=== PATIENT | male | born 1945 | race Caucasian/White ===

== ENCOUNTER 2022-12-18 13:20 | Outpatient (CLI) | payer MEDICARE, OTHER, SELFPAY ==
[2022-12-18 13:56] LABS: Hematocrit 59.9 % (42.0-52.0); Hemoglobin 18.1 g/dL (14.0-18.0); Mean Corpuscular HGB Conc 30.2 g/dl (32-36); Mean Corpuscular Hemoglobin 23.2 pg (26-34); Mean Corpuscular Volume 76.7 fl (80-100); Platelet Count Result 432 k/mm3 (150-375); Red Blood Count 7.81 M/mm3 (4.6-6.20); Red Cell Distribution Width 21.9 % (11.5-14.5); White Blood Count 12.7 K/mm3 (4.5-10.0)
== END 2022-12-18 13:21 | disposition home or self-care (01) ==
PROVIDERS: PCP Family Medicine; Visit Provider Family Medicine
DX: E66.3 Overweight (principal)
CPT/HCPCS: 36415; 85027

== ENCOUNTER 2023-02-27 10:46 | Outpatient (CLI) | payer MEDICARE, OTHER, SELFPAY ==
[2023-02-27 11:02] LABS: Basophils Absolute Auto 0.2 K/mm3 (0.0-0.1); Basophils Percent Auto 1.9 % (0.2-1.2); Eosinophils Absolute Auto 0.4 K/mm3 (0-0.3); Eosinophils Percent Auto 3.2 % (0-4.4); Hematocrit 61.5 % (42.0-52.0); Hemoglobin 18.8 g/dL (14.0-18.0); Immature Granulocyte Absolute 0.05 K/mm3 (0.00-0.031); Immature Granulocyte Percent A 0.4 % (0-0.5); Lymphocytes Absolute Auto 1.25 K/mm3 (0.9-3.2); Lymphocytes Percent Auto 9.9 % (18.3-44.2); Mean Corpuscular HGB Conc 30.6 g/dl (32-36); Mean Corpuscular Hemoglobin 23.5 pg (26-34); Mean Corpuscular Volume 76.8 fl (80-100); Mean Platelet Volume 10.1 fl (7.4-10.4); Monocytes Absolute Auto 0.8 K/mm3 (0.1-0.6); Monocytes Percent Auto 6.5 % (2.6-8.5); Neutrophils Absolute Auto 9.9 K/mm3 (1.3-6.7); Neutrophils Percent Auto 78.1 % (45.5-73.1); Platelet Count Result 448 k/mm3 (150-375); Red Blood Count 8.01 M/mm3 (4.6-6.20); White Blood Count 12.6 K/mm3 (4.5-10.0)
[2023-02-27 13:01] LABS: Alanine Aminotransferase 22 U/L (6-50); Albumin Level 4.2 g/dL (3.5-5.1); Alkaline Phosphatase 84 U/L (38-126); Anion Gap 8 mmol/L (8-16); Aspartate Amino Transferase 35 U/L (17-59); Blood Urea Nitrogen 28 mg/dL (9-20); Calcium 9.1 mg/dL (8.4-10.2); Carbon Dioxide 30 mmol/L (22-30); Chloride 106 mmol/L (98-107); Estimated Glomerular Filt Rate > 60; Glucose 81 mg/dL (65-110); Potassium 4.2 mmol/L (3.4-5.0); Sodium 144 mmol/L (137-145)
[2023-03-03 11:06] LABS: Erythropoietin (EPO) <1.0 mIU/mL (2.6-18.5)
[2023-03-05 11:03] LABS: BCR/abl Prior Result Not Given
[2023-03-05 11:52] LABS: BCR/abl P190 Not Detected; BCR/abl P210 Not Detected
[2023-03-05 11:53] LABS: BCR/abl P190 Chg YES; BCR/abl P210 Chg YES
[2023-03-06 13:17] LABS: Exon 14; Gene JAK2; JAK2 V617F Mutation Detected (Not Detected); Mutation Frequency 59.7; Mutation Type missense; Specimen Source Blood
== END 2023-02-27 10:47 | disposition home or self-care (01) ==
PROVIDERS: PCP Family Medicine; Visit Provider Internal Medicine Hematology & Oncology
DX: D72.829 Elevated white blood cell count, unspecified (principal); D45 Polycythemia vera
CPT/HCPCS: 36415; 80053; 81206; 81207; 81270; 82668; 85025

== ENCOUNTER 2023-05-14 14:41 | Emergency (ER) | payer MEDICARE, OTHER, SELFPAY ==
[2023-05-14 14:50] VITALS: BP 188/85; PULSE 64; RESP 18; TEMP 36.7; O2SAT 98
--- NOTE | 2023-05-14 14:55 | ECG_ITS ---
Measurements Intervals [place] Rate: 57 P: 42 WA: 203 QRS: -73 QRSD: 96 T: 8 QT: 404 QTc: 396 Interpretive Statements SINUS BRADYCARDIA LEFT AXIS DEVIATION POSSIBLE LEFT ATRIAL ENLARGEMENT ANTEROSEPTAL INFARCT, AGE INDETERMINATE INFERIOR INFARCT, AGE INDETERMINATE ABNORMAL ECG NO PREVIOUS ECG AVAILABLE FOR COMPARISON Electronically Signed On 05-14-2023 15:29:39 [employer] by Andrae Valente D.O.
[2023-05-14 18:36] VITALS: BP 190/71; PULSE 55; PULSE 60; RESP 16; RESP 18; O2SAT 98
[2023-05-14 18:46] VITALS: BP 161/71; PULSE 57; RESP 18; O2SAT 97
[2023-05-14 19:01] LABS: Basophils Absolute Auto 0.3 K/mm3 (0.0-0.1); Basophils Percent Auto 1.9 % (0.2-1.2); Eosinophils Absolute Auto 0.4 K/mm3 (0-0.3); Eosinophils Percent Auto 2.5 % (0-4.4); Hematocrit 62.6 % (42.0-52.0); Hemoglobin 18.2 g/dL (14.0-18.0); Immature Granulocyte Absolute 0.06 K/mm3 (0.00-0.031); Immature Granulocyte Percent A 0.4 % (0-0.5); Lymphocytes Absolute Auto 1.78 K/mm3 (0.9-3.2); Lymphocytes Percent Auto 11.6 % (18.3-44.2); Mean Corpuscular HGB Conc 29.1 g/dl (32-36); Mean Corpuscular Hemoglobin 21.8 pg (26-34); Mean Corpuscular Volume 75.2 fl (80-100); Mean Platelet Volume 10.5 fl (7.4-10.4); Monocytes Percent Auto 6.3 % (2.6-8.5); Neutrophils Absolute Auto 11.9 K/mm3 (1.3-6.7); Neutrophils Percent Auto 77.3 % (45.5-73.1); Platelet Count Result 504 k/mm3 (150-375); Red Blood Count 8.33 M/mm3 (4.6-6.20); Red Cell Distribution Width 21.2 % (11.5-14.5); White Blood Count 15.4 K/mm3 (4.5-10.0)
--- NOTE | 2023-05-14 19:09 | PC.NURSE ---
Assumed care of pt from LEONCIO Downing at this time.
[2023-05-14 19:11] LABS: Alanine Aminotransferase 20 U/L (6-50); Albumin Level 3.9 g/dL (3.5-5.1); Alkaline Phosphatase 90 U/L (38-126); Anion Gap 7 mmol/L (8-16); Aspartate Amino Transferase 30 U/L (17-59); Blood Urea Nitrogen 31 mg/dL (9-20); Carbon Dioxide 27 mmol/L (22-30); Chloride 106 mmol/L (98-107); Estimated CRCL calculation 75 ml/min; Estimated Glomerular Filt Rate > 60; Glucose 102 mg/dL (65-110); Potassium 4.4 mmol/L (3.4-5.0); Sodium 140 mmol/L (137-145)
[2023-05-14 19:14] LABS: Ovalocytes 1+ (NORMAL); Platelet Estimate Increased (Adequate); Schistocytes None Seen (NORMAL)
--- NOTE | 2023-05-14 19:21 | ED.RECABL ---
HPI - Recheck/Abnormal Lab/Rx General Chief Complaint: Recheck/Abnormal Lab/Rx Stated Complaint: high blood pressure Time Seen by Provider: 05/14/23 18:59 History of Present Illness HPI narrative: 77-year-old male with a history of polycythemia, hyperlipidemia, hypertension reports for evaluation for elevated blood pressure yesterday and today. Patient reports with his family at bedside to assist with the history. The patient is being treated for hypertension with carvedilol and lisinopril which he is compliant with. States he is undergoing phlebotomy right now for recent diagnosis of polycythemia with Dr. Dong. He had a phlebotomy appointment on 05/08 and his blood pressure was found to be 160 systolic. This prompted the family to begin taking the patient's blood pressure throughout the day. States the past 2 days, his blood pressures have been high, as high as the low 200s/100s which prompted them to bring him to the ED. they provided blood pressure log which shows blood pressures being taken every 20-30 minutes, a total of 6 times yesterday and 5 times today. Patient states he was sitting in his chair each time the blood pressures were obtained. Upon my arrival to the exam room, his blood pressure is 147/77 without intervention. He states he is asymptomatic and denies chest pain, shortness of breath, confusion or altered mental status, vision changes, focal numbness or weakness. He does report some left-sided neck pain which is chronic and unchanged from his baseline. He otherwise states he feels fine. Related Data Home Medications Medication Instructions Recorded Confirmed cholecalciferol (vitamin D3) 50 50 mcg PO DAILY 06/13/19 05/08/23 mcg (2,000 unit) capsule zinc sulfate 50 mg zinc (220 mg) 50 mg PO DAILY 06/07/21 05/08/23 capsule Centrum 1 tablet PO DAILY 03/07/22 05/08/23 Potassium-99 See Rx Instructions .Route .COMPLEX 03/07/22 05/08/23 ascorbic acid (vitamin C) 500 mg 500 mg PO DAILY 03/07/22 05/08/23 tablet omega 9-sdh-jlk-fish oil 1,200 mg 1 cap PO BID 03/07/22 05/08/23 (144 mg-216 mg) capsule (Fish Oil) aspirin 325 mg tablet,delayed 325 mg PO DAILY 09/30/22 05/08/23 release meloxicam 15 mg tablet 15 mg PO DAILY 09/30/22 05/08/23 sennosides 8.6 mg-docusate sodium 1 tab-cap PO QHS 09/30/22 05/08/23 50 mg capsule (Senna Plus) Allergies Allergy/AdvReac Type Severity Reaction Status Date / Time No Known Allergies Allergy Unknown Uncoded 05/14/23 18:37 Review of Systems Review of Systems: CONSTITUTIONAL: Denies fever, chills, or sweats. EYES: Denies visual changes, redness, or discharge. ENT: Denies rhinorrhea, congestion, sore throat, or otalgia. CARDIOVASCULAR: Denies chest pain, palpitations, or edema. RESPIRATORY: Denies cough or dyspnea. GASTROINTESTINAL: Denies abdominal pain, nausea, vomiting, or diarrhea. GENITOURINARY: Denies dysuria or hematuria. SKIN: Denies rash or itching. MUSCULOSKELETAL: Denies back pain, joint pain, or myalgia. NEUROLOGIC: Denies headache, numbness, or weakness. PSYCHIATRIC: Denies anxiety or depression. 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
[2023-05-14 19:38] VITALS: BP 157/69; PULSE 61; RESP 15; O2SAT 96
== END 2023-05-14 19:49 | disposition home or self-care (01) ==
PROVIDERS: Nurse Practitioner Family; Emergency Provider Physician Assistant; PCP Family Medicine
DX: I10 Essential (primary) hypertension (principal); E78.5 Hyperlipidemia, unspecified; D75.1 Secondary polycythemia; Z96.659 Presence of unspecified artificial knee joint; Z87.891 Personal history of nicotine dependence; Z79.82 Long term (current) use of aspirin; R00.1 Bradycardia, unspecified; R94.31 Abnormal electrocardiogram [ECG] [EKG]
CPT/HCPCS: 36415; 80053; 85025; 85610; 85730; 93005; 99283

== ENCOUNTER 2023-06-13 03:56 | Emergency (ER) | payer MEDICARE, OTHER, SELFPAY ==
[2023-06-13 04:13] VITALS: BP 174/75; PULSE 70; RESP 16; TEMP 36.4; O2SAT 96
[2023-06-13 04:46] LABS: Basophils Absolute Auto 0.4 K/mm3 (0.0-0.1); Basophils Percent Auto 2.5 % (0.2-1.2); Eosinophils Absolute Auto 0.7 K/mm3 (0-0.3); Eosinophils Percent Auto 4.7 % (0-4.4); Hematocrit 59.5 % (42.0-52.0); Hemoglobin 17.7 g/dL (14.0-18.0); Immature Granulocyte Absolute 0.08 K/mm3 (0.00-0.031); Immature Granulocyte Percent A 0.5 % (0-0.5); Lymphocytes Absolute Auto 1.98 K/mm3 (0.9-3.2); Lymphocytes Percent Auto 12.6 % (18.3-44.2); Mean Corpuscular HGB Conc 29.7 g/dl (32-36); Mean Corpuscular Hemoglobin 21.9 pg (26-34); Mean Corpuscular Volume 73.6 fl (80-100); Mean Platelet Volume 9.9 fl (7.4-10.4); Monocytes Absolute Auto 0.9 K/mm3 (0.1-0.6); Neutrophils Absolute Auto 11.6 K/mm3 (1.3-6.7); Neutrophils Percent Auto 73.7 % (45.5-73.1); Platelet Count Result 593 k/mm3 (150-375); Red Blood Count 8.08 M/mm3 (4.6-6.20); Red Cell Distribution Width 22.1 % (11.5-14.5); White Blood Count 15.7 K/mm3 (4.5-10.0)
[2023-06-13 05:02] LABS: INR 1.1; Prothrombin Time 14.9 Seconds (11.1-14.7)
[2023-06-13 05:03] LABS: Partial Thromboplastin Time 37.6 SECONDS (22.3-36.8)
[2023-06-13 06:04] LABS: Appearance Urine Cloudy (Clear); Bacteria Urine 4+ /hpf; Bilirubin Urine Negative (Negative); Blood Urine Negative (Negative); Color Urine Yellow (Yellow); Glucose Urine UA Negative (Negative); Ketones Urine Negative (Negative); Leukocyte Esterase Ur 2+ LEU/UL (Negative); Nitrate Urine Positive (Negative); Non Pathogenic Casts 0-2; Protein Urine Negative (Negative); RBC Urine 0-2 /hpf (0-2); Specific Grav Ur 1.021 (1.001-1.035); Squamous Epithelial Cell Urine None seen /hpf (Few); Urobilinogen Urine 0.2 mg/dL (<2.0); WBC Urine >100 /hpf; pH Urine 5.5 (5.0-9.0)
[2023-06-13 06:05] LABS: Add Urine Microscopic? YES
[2023-06-13 06:30] VITALS: BP 168/82; PULSE 67; RESP 20; O2SAT 98
[2023-06-13 06:47] LABS: Alanine Aminotransferase 20 U/L (6-50); Albumin Level 4.1 g/dL (3.5-5.1); Alkaline Phosphatase 102 U/L (38-126); Anion Gap 6 mmol/L (8-16); Aspartate Amino Transferase 28 U/L (17-59); Bilirubin,Total 0.6 mg/dL (0.2-1.3); Blood Urea Nitrogen 40 mg/dL (9-20); Calcium 9.9 mg/dL (8.4-10.2); Carbon Dioxide 29 mmol/L (22-30); Chloride 107 mmol/L (98-107); Estimated CRCL calculation 63 ml/min; Estimated Glomerular Filt Rate > 60; Glucose 115 mg/dL (65-110); Potassium 5.2 mmol/L (3.4-5.0); Sodium 142 mmol/L (137-145)
[2023-06-13 07:14] VITALS: BP 176/81; PULSE 77; RESP 20; O2SAT 99
--- NOTE | 2023-06-13 08:05 | ED.GENADULT ---
HPI - General Adult General Chief complaint: GI Bleed Stated complaint: Bleeding out of rectum Time Seen by Provider: 06/13/23 07:01 History of Present Illness HPI narrative: Patient is a 77-year-old male who presents to the emergency department this morning complaining of an episode of rectal bleeding. Patient noticed that he had some blood in his underwear and when he went to go have a bowel movement this morning, had noticed some blood mixed in with his stools. Stools were dark brown in color. Patient denies any previous episodes of any GI bleed and denies any blood thinner use. Patient does take daily full-dose aspirin. Patient's who is currently present a CT did state that the patient has been needing to strain while having a bowel movement recently due to some mild constipation. Patient has had a colonoscopy performed approximately 3 years ago which was noted to be normal. He is currently denying any abdominal pain, any nausea, vomiting, dysuria, hematuria and diarrhea, fevers or chills. Patient denies any headaches, dizziness, lightheadedness, focal weakness, numbness or tingling. There are no other natalie alleviating, or precipitating factors at this time. Related Data Home Medications Medication Instructions Recorded Confirmed cholecalciferol (vitamin D3) 50 50 mcg PO DAILY 06/13/19 06/05/23 mcg (2,000 unit) capsule zinc sulfate 50 mg zinc (220 mg) 50 mg PO DAILY 06/07/21 06/05/23 capsule Centrum 1 tablet PO DAILY 03/07/22 06/05/23 Potassium-99 See Rx Instructions .Route .COMPLEX 03/07/22 06/05/23 ascorbic acid (vitamin C) 500 mg 500 mg PO DAILY 03/07/22 06/05/23 tablet omega 3-hsd-ikn-fish oil 1,200 mg 1 cap PO BID 03/07/22 06/05/23 (144 mg-216 mg) capsule (Fish Oil) aspirin 325 mg tablet,delayed 325 mg PO DAILY 09/30/22 06/05/23 release meloxicam 15 mg tablet 15 mg PO DAILY 09/30/22 06/05/23 sennosides 8.6 mg-docusate sodium 1 tab-cap PO QHS 09/30/22 06/05/23 50 mg capsule (Senna Plus) finasteride 5 mg tablet 5 mg PO DAILY 05/26/23 06/05/23 Allergies Allergy/AdvReac Type Severity Reaction Status Date / Time No Known Allergies Allergy Unknown Uncoded 06/13/23 07:15 Review of Systems Review of Systems: All systems are reviewed and are negative unless stated otherwise in the HPI. 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 Family History Family History Mother Patient's mother is in good health Father Family history of coronary artery disease Social History Social History Smoking packs per day: 2.5 Smoking cigarettes per day: 50.0 Years smoked: 20 Smoking pack-years: 50.00 Smoking status: Former smoker Tobacco type: cigarettes Second hand tobacco smoke exposure: Yes Smoking end date: 04/27/84 Alcohol intake: never Substance use: never Substance use type: does not use Lack of Transportation: No Lack of Food: Never True Current Housing: I Have Housing Concerned About Future Housing: No Difficulty Paying Gas/Electric Bills: No Difficulty Paying for Meds: No Currently Unemployed: No Education: High School Diploma/GED Difficulty w/ Childcare or Family Care: No Spiritual care concerns: No Exam Narrative: General: Alert, awake, afebrile, in no acute distress. HEENT: PERRL, no rhinorrhea, no post nasal drip, oropharynx clear. Neck: Trachea midline, no JVD, no lymphadenopathy. Cardiovascular: Regular rate and rhythm, no murmurs, rubs or gallops, no peripheral
== END 2023-06-13 09:25 | disposition home or self-care (01) ==
PROVIDERS: Emergency Medicine; Emergency Provider Emergency Medicine; PCP Family Medicine
DX: K62.5 Hemorrhage of anus and rectum (principal); K59.00 Constipation, unspecified; N39.0 Urinary tract infection, site not specified; D72.829 Elevated white blood cell count, unspecified; I10 Essential (primary) hypertension; Z96.659 Presence of unspecified artificial knee joint; Z87.891 Personal history of nicotine dependence; Z79.82 Long term (current) use of aspirin
CPT/HCPCS: 36415; 80053; 81001; 85025; 85610; 85730; 86850; 86900; 86901; 87077; 87086; 87186; 99283

== ENCOUNTER 2023-06-29 10:15 | Outpatient (CLI) | payer MEDICARE, OTHER, SELFPAY ==
[2023-06-29 10:29] LABS: Basophils Absolute Auto 0.3 K/mm3 (0.0-0.1); Basophils Percent Auto 1.9 % (0.2-1.2); Eosinophils Absolute Auto 0.5 K/mm3 (0-0.3); Hematocrit 35.6 % (42.0-52.0); Hemoglobin 10.6 g/dL (14.0-18.0); Immature Granulocyte Absolute 0.09 K/mm3 (0.00-0.031); Immature Granulocyte Percent A 0.5 % (0-0.5); Lymphocytes Absolute Auto 1.35 K/mm3 (0.9-3.2); Lymphocytes Percent Auto 8.1 % (18.3-44.2); Mean Corpuscular HGB Conc 29.8 g/dl (32-36); Mean Corpuscular Hemoglobin 21.9 pg (26-34); Mean Corpuscular Volume 73.4 fl (80-100); Mean Platelet Volume 9.4 fl (7.4-10.4); Monocytes Absolute Auto 0.9 K/mm3 (0.1-0.6); Monocytes Percent Auto 5.6 % (2.6-8.5); Neutrophils Absolute Auto 13.5 K/mm3 (1.3-6.7); Neutrophils Percent Auto 80.9 % (45.5-73.1); Platelet Count Result 598 k/mm3 (150-375); Red Blood Count 4.85 M/mm3 (4.6-6.20); Red Cell Distribution Width 19.1 % (11.5-14.5); White Blood Count 16.6 K/mm3 (4.5-10.0)
[2023-06-29 10:33] LABS: Blood Urea Nitrogen 34 mg/dL (8-26); Carbon Dioxide 25 mmol/L (22-30); Chloride 107 mmol/L (98-109); Estimated Glomerular Filt Rate > 60; Glucose 86 mg/dL (70-105); Ionized Calcium (POC) 1.13 mmol/L (1.11-1.31); Potassium 4.4 mmol/L (3.5-4.9); Sodium 142 mmol/L (138-146)
[2023-06-29 10:34] LABS: Anisocytosis 1+ (NORMAL); Hypochromasia 2+ (NORMAL); Microcytosis 1+ (NORMAL); Ovalocytes 1+ (NORMAL); Platelet Estimate Increased (Adequate); Poikilocytosis 1+ (NORMAL); Schistocytes None Seen (NORMAL)
[2023-06-29 18:45] LABS: Iron 19 ug/dL (49-181)
[2023-06-29 18:57] LABS: Percent Iron Saturation 5 % (20-50)
== END 2023-06-29 10:16 | disposition home or self-care (01) ==
LOC: ANHLAB 10:18
PROVIDERS: Nurse Practitioner Family; PCP Family Medicine; Visit Provider Internal Medicine Hematology & Oncology
DX: D45 Polycythemia vera (principal); D50.9 Iron deficiency anemia, unspecified
CPT/HCPCS: 36415; 80047; 82607; 82728; 83540; 83550; 85025

== ENCOUNTER 2023-07-02 07:25 | Outpatient (CLI) | payer MEDICARE, OTHER, SELFPAY ==
--- NOTE | ~2023-07-02 | CT_ITS ---
EXAMINATION: CT abdomen pelvis w con INDICATION: Gastrointestinal hemorrhage TECHNIQUE: Computed tomographic images of the abdomen and pelvis were obtained after the administrati on of 100 cc of Omnipaque 350 intravenous contrast. The dose-length product (DLP) was 1011.27 mGy-cm. Automated exposure control and iterative reconstruction technique were employed. COMPARISON: None available FINDINGS: Minimal dependent atelectasis is present in the lung bases. The heart size is normal. Punct ate calcifications in an otherwise normal spleen likely represent healed granulomatous disease. Cysts of the liver measure up to 6 mm in the left hepatic lobe. The pancreas and adrenal glands are normal . Stones are present in the decompressed gallbladder. Cysts of the kidneys measure up to 5 cm on the left. There is calcified atherosclerosis of the aorta and many of the other arteries. No pathological ly enlarged abdominal or pelvic lymph nodes are identified. No free intraperitoneal gas or evidence o f bowel obstruction. A large volume of colonic stool is present. The appendix is normal. No definite gastrointestinal hemorrhage is identified. There is a small umbilical hernia containing fat. There is moderate to large right hydrocele. There is severe lumbar spondylosis. There are partially imaged ch anges of posterior fusion in the lower thoracic spine. IMPRESSION: 1. No CT correlate for the patient's symptoms. 2. Moderate to large right hydrocele. 3. Constipation. 4. Cholelithiasis. Reviewed, dictated and finalized at location L. [facility] [employer]
== END 2023-07-02 07:26 | disposition home or self-care (01) ==
PROVIDERS: PCP Family Medicine; Visit Provider Nurse Practitioner Family
DX: K92.2 Gastrointestinal hemorrhage, unspecified (principal); K59.00 Constipation, unspecified; K80.20 Calculus of gallbladder without cholecystitis without obstruction; N43.3 Hydrocele, unspecified
CPT/HCPCS: 74177; Q9967

== ENCOUNTER 2023-07-15 03:30 | Day surgery (SDC) | payer MEDICARE, OTHER, SELFPAY ==
[2023-07-08 09:15] VITALS: BMI 30.3
--- NOTE | 2023-07-08 10:22 | PC.NURSE ---
Spoke with patient and spouse, pt is on multiple meds and over the counter supp. for constipation. They state he is still having problems with constipation dispite all the interventions and that with his last colonoscopy he was not cleaned out, discussed 2 day prep with them and he wants to proceed with 2 day prep for colonoscopy. 2 day prep emailed to patient.
--- NOTE | 2023-07-13 10:38 | SUR.PREOP ---
Patient called regarding upcoming procedure. Reviewed preop instructions, appointment times, procedure prep.
[2023-07-15 12:45] VITALS: BP 138/61; PULSE 57; RESP 18; TEMP 36.3; O2SAT 99
--- NOTE | 2023-07-15 12:54 | WPDANESEPPF ---
Anes - Initial Pre Proc Eval Procedure: Operation Date: 07/15/23 14:00 Proposed Procedures p Colonoscopy - Mustapha Faria MD Date/Time: 07/15/23 12:54 Surgeon: Mustapha Faria MD Pre Op Diagnosis: Hemorrhage of anus and rectum Patient Data Age: 77 Gender: M Height: 1.82 m Weight: 96.7 kg Last Vital Signs Temp 97.3 F L 07/15/23 12:45 Pulse 57 L 07/15/23 12:45 Resp 18 07/15/23 12:45 BP 138/61 07/15/23 12:45 Pulse Ox 99 07/15/23 12:45 O2 Del Method Room Air 07/15/23 12:45 Allergies Allergy/AdvReac Type Severity Reaction Status Date / Time No Known Allergies Allergy Unknown Uncoded 07/15/23 12:43 Home Medications Medication Instructions Recorded Confirmed Type cholecalciferol (vitamin D3) 50 50 mcg PO DAILY 06/13/19 07/08/23 History mcg (2,000 unit) capsule zinc sulfate 50 mg zinc (220 mg) 50 mg PO DAILY 06/07/21 07/08/23 History capsule Potassium-99 1 tab-cap PO DAILY 03/07/22 07/08/23 History ascorbic acid (vitamin C) 500 mg 500 mg PO DAILY 03/07/22 07/08/23 History tablet omega 5-egr-jtz-fish oil 1,200 mg 1 cap PO BID 03/07/22 07/08/23 History (144 mg-216 mg) capsule (Fish Oil) Shower chair #1 ea 03/27/22 06/17/23 Rx Drop-arm bedside commode #1 ea 03/27/22 06/17/23 Rx tamsulosin 0.4 mg capsule See Rx Instructions .Route 05/19/22 07/15/23 Rx .COMPLEX #30 caps aspirin 325 mg tablet,delayed 325 mg PO DAILY 09/30/22 07/15/23 History release sennosides 8.6 mg-docusate sodium 1 tab-cap PO QHS 09/30/22 07/08/23 History 50 mg capsule (Senna Plus) simvastatin 40 mg tablet 40 mg PO DAILY #90 tabs 01/16/23 07/08/23 Rx linaclotide 145 mcg capsule 145 mcg PO DAILY #90 caps 04/10/23 07/08/23 Rx (Linzess) carvedilol 6.25 mg tablet See Rx Instructions .Route 05/11/23 07/15/23 Rx .COMPLEX #180 tabs finasteride 5 mg tablet 5 mg PO DAILY 05/26/23 07/15/23 History ipratropium bromide 42 mcg (0.06 2 spray intranasal TID PRN allergy 05/26/23 07/08/23 Rx %) nasal spray symptoms #15 mL lisinopril 10 mg tablet 20 mg PO DAILY #90 tabs 05/26/23 07/15/23 Rx calcium carbonate 600 mg calcium 600 mg PO DAILY 07/08/23 07/08/23 History (1,500 mg) tablet (Calcium) docusate sodium 100 mg tablet 200 mg PO DAILY 07/08/23 07/08/23 History (Stool Softener) lzsajsjblgal-duqruyjj-tsrsjp tablet 1 tablet PO DAILY 07/08/23 07/08/23 History polyethylene glycol 3350 17 17 g PO DAILY 07/08/23 07/08/23 History gram/dose oral powder (Miralax) Patient hx anesthesia problems: none Family hx anesthesia problems: none Results Review: All pre-operative results and documents have been reviewed as part of the pre-operative evaluation. 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 Family History Family History Mother Patient's mother is in good health Father Family history of coronary artery disease Social History Social History Smoking packs per day: 2.5 Smoking cigarettes per day: 50.0 Years smoked: 30 Smoking pack-years: 75.00 Smoking status: Former smoker Tobacco type: cigarettes Second hand tobacco smoke exposure: Yes Smoking end date: 04/27/84 Alcohol intake: current Substance use: never Substance use type: does not use Lack of Transportation: No Lack of Food: Never True Current Housing: I Have Housing Concerned About Future Housing: No Difficulty Paying Gas/Electric Bills: No Difficulty Paying for Meds: No Currently Unempl
[2023-07-15] MEDS: LACTATED RINGERS 1,000 ML 150 ML IV CONT (12:56)
--- NOTE | 2023-07-15 13:20 | PM.HPGS ---
History of Present Illness History of Present Illness Consent: Risks, benefits, and alternatives have been discussed and questions answered. Patient agrees to proceed with procedure. Chief complaint: Hemorrhage of anus and rectum Narrative: Antonio Dobbs is a 77 year old male with episode of hematochezia, he went to ER and CT scan no major findings only constipation. Last colonoscopy about 5-6 years ago with polyp. 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 Family History Family History Mother Patient's mother is in good health Father Family history of coronary artery disease Social History Social History Smoking packs per day: 2.5 Smoking cigarettes per day: 50.0 Years smoked: 30 Smoking pack-years: 75.00 Smoking status: Former smoker Tobacco type: cigarettes Second hand tobacco smoke exposure: Yes Smoking end date: 04/27/84 Alcohol intake: current Substance use: never Substance use type: does not use Lack of Transportation: No Lack of Food: Never True Current Housing: I Have Housing Concerned About Future Housing: No Difficulty Paying Gas/Electric Bills: No Difficulty Paying for Meds: No Currently Unemployed: No Education: High School Diploma/GED Difficulty w/ Childcare or Family Care: No Living arrangements: with family Spiritual care concerns: No Meds Home Medications and Allergies Home Medications Medication Instructions Recorded Confirmed Type cholecalciferol (vitamin D3) 50 50 mcg PO DAILY 06/13/19 07/08/23 History mcg (2,000 unit) capsule zinc sulfate 50 mg zinc (220 mg) 50 mg PO DAILY 06/07/21 07/08/23 History capsule Potassium-99 1 tab-cap PO DAILY 03/07/22 07/08/23 History ascorbic acid (vitamin C) 500 mg 500 mg PO DAILY 03/07/22 07/08/23 History tablet omega 7-acy-hzp-fish oil 1,200 mg 1 cap PO BID 03/07/22 07/08/23 History (144 mg-216 mg) capsule (Fish Oil) Shower chair #1 ea 03/27/22 06/17/23 Rx Drop-arm bedside commode #1 ea 03/27/22 06/17/23 Rx tamsulosin 0.4 mg capsule See Rx Instructions .Route 05/19/22 07/15/23 Rx .COMPLEX #30 caps aspirin 325 mg tablet,delayed 325 mg PO DAILY 09/30/22 07/15/23 History release sennosides 8.6 mg-docusate sodium 1 tab-cap PO QHS 09/30/22 07/08/23 History 50 mg capsule (Senna Plus) simvastatin 40 mg tablet 40 mg PO DAILY #90 tabs 01/16/23 07/08/23 Rx carvedilol 6.25 mg tablet See Rx Instructions .Route 05/11/23 07/15/23 Rx .COMPLEX #180 tabs finasteride 5 mg tablet 5 mg PO DAILY 05/26/23 07/15/23 History ipratropium bromide 42 mcg (0.06 2 spray intranasal TID PRN allergy 05/26/23 07/08/23 Rx %) nasal spray symptoms #15 mL lisinopril 10 mg tablet 20 mg PO DAILY #90 tabs 05/26/23 07/15/23 Rx calcium carbonate 600 mg calcium 600 mg PO DAILY 07/08/23 07/08/23 History (1,500 mg) tablet (Calcium) docusate sodium 100 mg tablet 200 mg PO DAILY 07/08/23 07/08/23 History (Stool Softener) ojofijpcahfi-wtbfcluk-bsgone tablet 1 tablet PO DAILY 07/08/23 07/08/23 History polyethylene glycol 3350 17 17 g PO DAILY 07/08/23 07/08/23 History gram/dose oral powder (Miralax) linaclotide 145 mcg capsule 145 mcg PO DAILY #90 caps 07/15/23 Rx (Linzess) Allergies Allergy/AdvReac Type Severity Reaction Status Date / Time No Known Allergies Allergy Unknown Uncoded 0
[2023-07-15 13:43] VITALS: BP 97/47; PULSE 61; RESP 21; O2SAT 100
[2023-07-15 13:53] VITALS: BP 120/52; PULSE 62; RESP 16; O2SAT 100
[2023-07-15 14:03] VITALS: BP 125/45; PULSE 56; RESP 18; O2SAT 100
== END 2023-07-15 14:09 | disposition home or self-care (01) ==
PROVIDERS: PCP Family Medicine; Visit Provider Internal Medicine Gastroenterology
PROC: 0DJD8ZZ Inspection of Lower Intestinal Tract, Via Natural or Artificial Opening Endoscopic (ICD-10-PCS; CPT 45378; principal; 2023-07-15 14:00)
DX: K57.30 Diverticulosis of large intestine without perforation or abscess without bleeding (principal); K64.8 Other hemorrhoids; I10 Essential (primary) hypertension; Z87.891 Personal history of nicotine dependence; E66.9 Obesity, unspecified; Z68.29 Body mass index [BMI] 29.0-29.9, adult; Z79.82 Long term (current) use of aspirin
CPT/HCPCS: 45378; J2704; J7120

== ENCOUNTER 2024-07-25 03:13 | Inpatient (IN) | payer MEDICARE, OTHER, SELFPAY ==
[2024-07-25] VITALS (26 sets, daily range): BP systolic 94–149; BP diastolic 40–76; PULSE 63–110; RESP 15–20; TEMP 36.2–37.1; O2SAT 94–100
--- NOTE | ~2024-07-25 | CT_ITS ---
CT of the Abdomen and Pelvis: Indication: GI bleed Technique: 2.5 mm axial scans were obtained through the abdomen and pelvis following intravenous adm inistration of 100 cc of Omnipaque 350. Dose reduction technique was used on this scan by utilizing a utomated exposure control and iterative reconstruction technique. The dose-length product (DLP) was 1 309.75 mGy-cm. COMPARISON: 07/02/2023 Findings: Scans through the lung bases are unremarkable. The liver, spleen, pancreas, adrenals and kidneys are within normal limits. Small calcified gallstone s are present. There are atherosclerotic calcifications of the aorta. No lymphadenopathy. No bowel obstruction. Prominent stool suggests constipation. Possible minimal diverticulitis at the d istal descending colon. No abscess or free air. No distinct evidence for acute GI bleed. Images through the pelvis were performed. Urinary bladder unremarkable. No pelvic mass seen. No ascit es. There is diffuse degenerative spondylosis of the lumbar spine. There is posterior fusion of the l ower thoracic spine. Impression: No CT angiographic evidence for active GI bleeding. Possible mild acute diverticulitis of the distal descending colon. Cholelithiasis. Constipation. Reviewed, dictated and finalized at location . Impression: No CT angiographic evidence for active GI bleeding. Possible mild acute diverti culitis of the distal descending colon. Cholelithiasis. Constipation.
--- NOTE | ~2024-07-25 | CT_ITS ---
Non-contrast Head CT History: Status post fall Technique: Axial non-contrast imaging of the brain was performed. Dose reduction technique was used on this scan by utilizing automated exposure control and iterative reconstruction technique. The dose -length product (DLP) was 681.00 mGy-cm. Findings: There is no evidence of intracranial hemorrhage, mass lesion, or acute infarct. Brain par enchyma appears normal. The ventricles and subarachnoid spaces are normal in size. The calvarium ap pears normal. The visualized paranasal sinuses and mastoid air cells are clear. Impression: No significant abnormality seen. Reviewed, dictated and finalized at location . Impression: No significant abnormality seen.
[2024-07-25 03:30] LABS: Basophils Absolute Auto 0.4 K/mm3 (0.0-0.1); Basophils Percent Auto 1.6 % (0.2-1.2); Eosinophils Absolute Auto 0.2 K/mm3 (0-0.3); Hematocrit 30.2 % (42.0-52.0); Hemoglobin 8.8 g/dL (14.0-18.0); Immature Granulocyte Absolute 0.23 K/mm3 (0.00-0.031); Immature Granulocyte Percent A 0.9 % (0-0.5); Lymphocytes Absolute Auto 1.33 K/mm3 (0.9-3.2); Lymphocytes Percent Auto 5.4 % (18.3-44.2); Mean Corpuscular HGB Conc 29.1 g/dl (32-36); Mean Corpuscular Volume 68.8 fl (80-100); Mean Platelet Volume 10.3 fl (7.4-10.4); Monocytes Absolute Auto 1.1 K/mm3 (0.1-0.6); Monocytes Percent Auto 4.6 % (2.6-8.5); Neutrophils Absolute Auto 21.1 K/mm3 (1.3-6.7); Neutrophils Percent Auto 86.5 % (45.5-73.1); Nucleated Red Blood Cells Perc 0.1 % (0.0-0.2); Platelet Count Result 824 k/mm3 (150-375); Red Blood Count 4.39 M/mm3 (4.6-6.20); Red Cell Distribution Width 24.7 % (11.5-14.5); White Blood Count 24.4 K/mm3 (4.5-10.0)
[2024-07-25 03:39] LABS: Alanine Aminotransferase 14 U/L (6-50); Alkaline Phosphatase 69 U/L (38-126); Anion Gap 10 mmol/L (4-12); Aspartate Amino Transferase 17 U/L (17-59); Bilirubin,Total 0.8 mg/dL (0.2-1.3); Blood Urea Nitrogen 35 mg/dL (9-20); Calcium 7.9 mg/dL (8.4-10.2); Carbon Dioxide 20 mmol/L (22-30); Chloride 107 mmol/L (98-107); Estimated CRCL calculation 58 ml/min; Estimated Glomerular Filt Rate > 60; Glucose 187 mg/dL (65-110); Potassium 4.1 mmol/L (3.4-5.0); Sodium 137 mmol/L (137-145)
--- OUTSIDE RECORDS SUMMARY | 2024-07-25 03:41 | XMS_ITS | Clinical Summary ---
Author Organization [facility] Lavonne Suazo Address [address] [place] [address] Care Team Providers Care Synthetic Gem Press Operator Name Role Phone Maurice Mary MD Primary Care Provider [phone] Allergies No known active allergies Medications ascorbic acid, vitamin C, 500 mg Capsule Take 1 Tablet by mouth daily. Active carvediloL (COREG) 6.25 mg tablet Take 6.25 mg by mouth. 03/05/2022 Active cholecalciferol , Vitamin D3, 50 mcg (2,000 unit) Tablet Take 2,000 Units by mouth daily. Active finasteride (PROSCAR) 5 mg tablet Take 5 mg by mouth daily. 09/30/2022 Active potassium gluconate 2.5 mEq Tablet Take 595 mg by mouth daily. Active sennosides (SENOKOT XTRA) 17.2 mg Tablet tablet Take 17.2 mg by mouth daily. 03/06/2022 Active simvastatin (ZOCOR) 40 mg tablet Take 40 mg by mouth. Active tamsulosin (FLOMAX) 0.4 mg capsule TAKE 1 CAPSULE BY MOUTH AT THE SAME TIME EVERY DAY AFTER A MEAL 12/11/2022 Active zinc gluconate 50 mg Tablet Take 50 mg by mouth daily. Active calcium carbonate + vitamin D (Calcium 600 + D) 600 mg-10 mcg (400 unit) Tablet Take by mouth. Active omega-3 fatty acids-fish oil 300-1,000 mg Capsule Take by mouth daily. Active meloxicam (MOBIC) 15 mg tablet Take 15 mg by mouth daily. Active mv-min/folic/K1 /lycopen/lutein (CENTRUM SILVER MEN ORAL) Take by mouth. Active aspirin (ECOTRIN EC) 81 mg Tablet, Delayed Release (E.C.) Take 81 mg by mouth daily. Active lisinopriL (PRINIVIL) 20 mg tablet Take 20 mg by mouth daily. Active polyethylene glycol (MIRALAX) 17 gram Powder in Packet Take 17 Grams by mouth daily. Active Linzess 290 mcg capsule Take 290 mcg by mouth daily. 07/21/2023 Active MELATONIN ORAL Take 10 mg by mouth nightly as needed for Other (See Comment) (Insomnia). Active hydroxyurea (HYDREA) 500 mg capsule Take 1 Capsule (500 mg) by mouth daily. 60 Capsule 1 06/21/2024 Active allopurinoL (ZYLOPRIM) 300 mg tablet Take 1 Tablet (300 mg) by mouth daily. 60 Tablet 1 06/21/2024 Active Active Problems No known active problems Encounters Date Type Department Care Team Description 07/19/2024 External Device Data STL ABSTRACTION Provider, Abstract 07/18/2024 Orders Only [facility] - [address] [place] [address] Petar Dong MD Iron deficiency anemia, unspecified iron deficiency anemia type 07/13/2024 External Device Data STL ABSTRACTION Provider, Abstract 07/13/2024 External Device Data STL ABSTRACTION Provider, Abstract 07/07/2024 Orders Only [facility] - [address] [place] [address] Petar Dong MD 07/04/2024 External Device Data STL ABSTRACTION Provider, Abstract 07/04/2024 Orders Only [facility] - [address] [place] [address] Petar Dong MD Iron deficiency anemia, unspecified iron deficiency anemia type 06/21/2024 2:30 PM REDIPPER Office Visit [facility] - [address] [place] [address] Petar Dong MD Polycythemia vera (CMS/HCC) (Primary Dx) 06/21/2024 External Device Data STL ABSTRACTION Provider, Abstract 06/20/2024 Orders Only [facility] - [address] [place] [address] Petar Dong MD Iron deficiency anemia, unspecified iron deficiency anemia type 06/17/2024 Orders Only [facility] - [address] [place] [id number] Petar Dong MD Polycythemia vera (CMS/HCC) (Primary Dx) 06/06/2024 Orders Only [facility] - [address] [place] [id number] Petar Dong MD Iron deficiency anemia, unspecified iron deficiency anemia type 05/24/2024 External Device Data STL ABSTRACTION Provider, Abstract 05/23/2024 Orders Only [facility] - [address] [place] [id number] Petar Dong MD Iron deficiency anemia, unspecified iron deficiency anemia type 05/18/2024 External Device Data STL ABSTRACTION Provider, Abstract 05/18/2024 External Device Data STL ABSTRACTION Provider, Abstract 05/11/2024 External Device Data STL ABSTRACTION Provider, Abstract 05/09/2024 Orders Only [facility] - [address] [place] [id number] Petar Dong MD Iron deficiency anemia, unspecified iron deficiency anemia type from Last 3 Months Family History Medical History Relation Name Comments Heart Disease Father Relation Name Status Comments Brother Father Mother Sister 1 Alive Sister 2 Alive Sister 3 Alive Son 1 Alive Son 2 Alive Social History Tobacco Use Types Packs/Day Years Used Date Smoking Tobacco: Former Cigarettes Q uit: 1989 Smokeless Tobacco: Never Tobacco Cessation:Counseling Given: Not Answered Alcohol Use Standard Drinks/Week Comments Yes 0 (1 standard drink = 0.6 oz pur e alcohol) Sex and Gender Information Value Date Recorded Sex Assigned at Not on file Legal Sex Male 7:44 AM CDT Gender Identity Not on file Sexual Orientation Not on file Last Filed Vital Signs Vital Sign Reading Time Taken Comments Blood Pressure 109/57 06/21/2024 2:05 PM REDIPPER Pulse 58 06/21/2024 2:05 PM REDIPPER Temperature 36.8 C (98.3 F) 06/21/2024 2:05 PM REDIPPER Respiratory Rate 15 06/21/2024 2:05 PM REDIPPER Oxygen Saturation 95% 06/21/2024 2:05 PM REDIPPER Inhaled Oxygen Concentration - - Weight 97.8 kg (215 lb 9.6 oz) 06/21/2024 2:05 P M REDIPPER Height - - Body Mass Index - - Plan of Treatment Upcoming Encounters Date Type Department Care Team (Late st Contact Info) Description 08/04/2024 2:00 PM CDT Office Visit [facility] [address] [facility] [address] [place] [address] Petar Dong MD [address] [facility] [address] [place] [address] Health Maintenance Due Date Last Done Comments PNEUMOCOCCAL VACCINE 50+ YEARS (1 of 1 - PCV) 07/31/18 98 ZOSTER VACCINE (1 of 2) 07/31/1997 RSV VACCINE (60+ or ) (1 - 1-dose 75+ series) 07/31/2022 INFLUENZA VACCINE (#1) 2023 DTAP/TDAP/TD VACCINES (2 - Td or Tdap) 02/21/2032 COLORECTAL SCREENING Discontinued 01/25/2019 Colorectal Cancer Screening Discontinued FIT-DNA Q 3 years Discontinued FIT/FOBT Q 1 year Discontinued Flex Sig/CT Colonography Q 5 years Discontinued Procedures Procedure Name Priority Date/Time Associated Diagnosis Comments CBC WITH DIFFERENTIAL Routine 07/06/2024 2:02 PM CDT from Last 3 Months Results * CBC WITH DIFFERENTIAL (07/06/2024 2:02 PM CDT) Blood Petar Dong MD HEMATOLOGY ORDERABLES Final Res ult from Last 3 Months Insurance MEDICARE PART A AND B GENERIC PAYOR Care Teams Synthetic Gem Press Operator Relationship Specialty Start Date End Date Maurice Mary MD [address] [place] [address] PCP - General Family Practice 02/27/23
--- OUTSIDE RECORDS SUMMARY | 2024-07-25 03:41 | XMS_ITS | CONTINUITY OF CARE DOCUMENT ---
Author Name kira mattyadriana Address Unknown Organization [facility] Address [address] [place] [address] Phone [phone] Care Team Providers Care Delphi Developer Name Role Phone Remy Ospina MD Unavailable [phone] ALLIE FARNSWORTH, DANIELLA Min Unavailable LUANN FARNSWORTH, WALTER Unavailable INSURANCE PROVIDERS Payer name Policy type / Coverage type [place] [employer] party [employer] [id number] [place] Medicare [id number]
--- OUTSIDE RECORDS SUMMARY | 2024-07-25 03:41 | XMS_ITS | Clinical Summary ---
Author Organization [facility] Address [address] [place] [address] Care Team Providers Care Clinical Systems Analyst Name Role Phone Maurice Mary MD Primary Care Provider [phone] Source Comments [facility],non-owned Affiliates and Associated Physician Practices is amultiple site organization consisting of ambulatory clinics and hospital sitesin [place], [place], [place] and [place]. This disclosure is being madepursuant to the Care Everywhere program and may not contain all information available regarding this patient. Last updated 18.[email or web address] [email or web address] Allergies No known active allergies Medications * Be aware that medications may not be up to date on this document. Alwaysverify current medications with the patient. Medication Sig Dispensed Refills Start Date End Date Status Multiple Vitamins-Minerals (CENTRUM ADULTS PO) Take 1 tablet by mouth once daily Active Potassium 99 MG tablet Take 1 (one) tablet by mouth once daily Active Vitamin D3 (Cholecalciferol) 50 MCG (2000 UT) capsule Take 1 (one) capsule by mouth once daily Active [place]-3 Fatty Acids (Fish Oil) 1200 MG Take 1 tablet by mouth 2 times daily Active acetaminophen (Tylenol) 325 MG tablet Take 2 (two) tablets by mouth every 4 hours as needed Maximum allowable Acetaminophen amount = 4 Grams (4000 mg) / 24 hours. 03/05/2022 Active carvedilol (Coreg) 6.25 MG tablet Take 1 (one) tablet by mouth 2 times daily with morning and evening meal 03/05/2022 Active senna (Senokot Extra Strength) 17.2 MG Take 17.2 mg by mouth once daily 03/06/2022 Active simvastatin (Zocor) 40 MG tablet Take 1 (one) tablet by mouth at bedtime Active docusate sodium (Colace) 100 MG capsule Take 1 (one) capsule by mouth once daily Active calcium 500 MG tablet Take 1 (one) tablet by mouth 2 times daily with morning and evening meal 04/11/2022 Active Ascorbic Acid ER (Vitamin C) 500 MG capsule Active Melatonin 2.5 MG Active polyethylene glycol 3350 (Miralax) 17 GM/SCOOP powder Take 17 (seventeen) g by mouth once daily Active Zinc 50 MG tablet Take 1 (one) tablet by mouth once daily Active aspirin (Aspirin) 325 MG tablet Take 1 (one) tablet by mouth once daily 09/12/2022 Active tamsulosin (Flomax) 0.4 MG capsule TAKE ONE CAPSULE BY MOUTH EVERY DAY AT THE SAME TIME AFTER A MEAL 90 capsule 3 06/15/2023 Active lisinopril (Prinivil; Zestril) 20 MG tablet Take 1 (one) tablet by mouth once daily Active Linzess 290 MCG capsule Take 1 (one) capsule by mouth once daily 07/21/2023 Active ipratropium (Atrovent) 0.06 % nasal spray [place] 2 (two) sprays into each nostril 3 times daily 06/21/2023 Active oxyCODONE, immediate release, (Roxicodone) 5 MG tabletIndications :Right hydrocele Take 1 (one) tablet by mouth every 6 hours as needed for Pain 8 tablet 09/14/2023 Active finasteride (Proscar) 5 MG tablet Take 1 (one) tablet by mouth once daily 90 tablet 4 12/10/2023 Active Active Problems Problem Noted Date Diagnosed Date Acute pain due to trauma 04/11/2022 Impaired mobility and ADLs 04/11/2022 Closed fracture of eleventh thoracic vertebra with routine healing, unspecified fracture morphology, subsequent encounter 04/10/2022 Skin avulsion 04/10/2022 Fracture of tenth thoracic vertebra 03/05/2022 Pulmonary contusion 03/05/2022 Fibula fracture 03/05/2022 Radius fracture 03/05/2022 Ulna fracture 03/05/2022 Scrotal edema 03/05/2022 Subarachnoid bleed 03/01/2022 Closed fracture of eleventh thoracic vertebra Aortic dissection 03/01/2022 Closed fracture of left radius and ulna 03/01/20 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/2022 Resolved Problems Problem Noted Date Diagnosed Date Resolved Date Multiple rib fractures 03/05/202203/27 Closed fracture of multiple ribs of both sides 03/01/2022 03/27/2022 Pneumothorax on right 03/01/20222021 Closed fracture of proximal end of left fibula 03/01/2022 03/01/2022 Trauma 02/20/2022 03/27/2022 Encounters Date Type Department Care Team Description 05/04/2024 11:45 AM LEARNING SOLUTIONS SPECIALIST Office Visit [facility] - Vascular Surgery [address] [place] [address] Hilda Asher MD Dissection of descending thoracic aorta (Primary Dx) 05/04/2024 10:37 AM LEARNING SOLUTIONS SPECIALIST - 05/04/2024 11:59 PM LEARNING SOLUTIONS SPECIALIST Hospital Encounter [facility] [address] [place] [address] Hilda Asher MD Discharge Disposition: Home or Self Care 05/04/2024 Travel from Last 3 Months Immunizations Name Administration Dates Next Due INFLUENZA VACCINE 02/01/2022,02/13/2014,02/10/20 13,02/21/2012 TDAP (7yrs+) 02/20/2022 Family History Relation Name Status Comments Father Mother Social History Tobacco Use Types Packs/Day Years Used Date Smoking Tobacco: Never Smokeless Tobacco: Never Tobacco Cessation:Counseling Given: No Alcohol Use Standard Drinks/Week Comments Never 0 (1 standard drink = 0.6 oz pur e alcohol) AUDIT-C Answer Date Recorded Q1: How often do you have a drink containing alcohol? Never 04/10/2022 Q2: How many drinks containi ng alcohol do you have on a typical day when you are drinking? Patient does not drink 2 Q3: How often do you have si x or more drinks on one occasion? Never 04/10/2022 Hunger Vital Sign Answer Date Recorded Within the past 12 months, y ou worried that your food would run out before you got the money to buy more. Never true 04/11/20 22 Within the past 12 months, t he food you bought just didn't last and you didn't have money to get more. Never true 04/11/2022 Sex and Gender Information Value Date Recorded Sex Assigned at Male 03/19/2022 11:17 AM LEARNING SOLUTIONS SPECIALIST Gender Identity Male 03/19/2022 11:17 AM LEARNING SOLUTIONS SPECIALIST Sexual Orientation Straight 03/19/2022 11 :17 AM LEARNING SOLUTIONS SPECIALIST Last Filed Vital Signs Vital Sign Reading Time Taken Comments Blood Pressure 144/73 05/04/2024 11:34 AM LEARNING SOLUTIONS SPECIALIST 149/74 Pulse 57 05/04/2024 11:34 AM LEARNING SOLUTIONS SPECIALIST Temperature 36.6 C (97.9 F) 05/04/2024 11:34 AM LEARNING SOLUTIONS SPECIALIST Respiratory Rate 18 05/04/2024 11:3 4 AM LEARNING SOLUTIONS SPECIALIST Oxygen Saturation 98% 05/04/2024 11: 34 AM LEARNING SOLUTIONS SPECIALIST Inhaled Oxygen Concentration 21% 03/02/2022 8 :58 PM LEARNING SOLUTIONS SPECIALIST Weight 100.6 kg (221 lb 12.8 oz) 2024 11:34 AM LEARNING SOLUTIONS SPECIALIST Height 180.3 cm (5' 11 ) 05/04/2024 11: 34 AM LEARNING SOLUTIONS SPECIALIST Body Mass Index 30.93 05/04/2024 11:34 AM LEARNING SOLUTIONS SPECIALIST Plan of Treatment Health Maintenance Due Date Last Done Comments MEDICARE AWV 12 MONTHS 1945 HEPATITIS C SCREENING 07/27/1963 PNEUMOCOCCAL VACCINE 50+ (1 of 1 - PCV) 07/31/1997 ZOSTER VACCINE (1 of 2) 07/31/1997 Respiratory Syncytial Virus (RSV) Vaccine Pt: or over 60 yrs (1 - 1-dose 75+ series) 07/31/2022 COVID-19 VACCINE ( - season) 2023 06/26/2021, 12/11/2020, 11/20/2020 INFLUENZA VACCINE (#1) 2023 2, 02/13/2014, 02/09/2013, Additional history exists DEPRESSION SCREENING 04/27/2024 DTAP/TDAP/TD VACCINES (2 - Td or Tdap) 02/21/2032 02/20/2022 HEPATITIS B VACCINE Aged Out No longe r eligible based on patient's age to complete this topic HIB VACCINE Aged Out No longer eligi ble based on patient's age to complete this topic HPV VACCINE Aged Out No longer eligi ble based on patient's age to complete this topic MENINGOCOCCAL (Group B) VACCINE SHARED DECISION-MAKING Aged Out No longer eligible based on patient's age to complete this topic MENINGOCOCCAL GROUPS A/C/Y/W VACCINE Aged Out No longer eligible based on patient's age to complete this topic Medical Devices Implanted Type Area Refrigeration Supervisor Device Identifier Shelf Expiration Date Model / Serial / Lot Gft Stent 31mm 10cm Tag Thor Act Cntrl Implanted:Qty: 1 on 02/22/2022 by Hilda Asher MD at [facility] [employer] [id number] / / Fritz Bone Void 10ml Dbm Grftn Algrf Ptty - [id number] Implanted:Qty: 1 on 02/23/2022 by Jesus Myles MD at [facility] N/A: Spine Thoracic [employer] [id number] / [id number] / Graft Bone Canc 60ml Frzdr Chp 4-9.5mm - [id number] Implanted:Qty: 1 on 02/23/2022 by Jesus Myles MD at [facility] N/A: Spine Thoracic [employer] [id number] / [id number] / Graft Bone Canc 4-9.5mm 30cc Algrf Frzdr - [id number] Implanted:Qty: 1 on 02/23/2022 by Jesus Myles MD at [facility] N/A: Spine Thoracic [employer] [id number] / [id number] / Description:cancellous chips Fritz Bone Void 10ml Dbm Grftn Algrf Ptty - [id number] Implanted:Qty: 1 on 02/23/2022 by Jesus Myles MD at [facility] N/A: Spine Thoracic [employer] Inc 01/07/2025 [id number] / [id number] / Description:putty Screws Implanted:Qty: 7 on 02/23/2022 by Jesus Myles MD at [facility] 2 / / Description:screws Implanted:Qty: 4 on 02/23/2022 by Jesus Myles MD at [facility] / / Implanted:Qty: 11 on 02/23/2022 by Jesus Myles MD at [facility] / / Description:caps Roman Spnl 480mm 5.5mm Xpdm Ti Implanted:Qty: 1 on 02/23/2022 by Jesus Myles MD at [facility] Depuy Spine [id number] / / Screw 3.5mm 14mm Slf-Tap Cortx Evos Strl Implanted:Qty: 1 on 02/25/2022 by Rasta Jimenes MD at [facility] Left: [employer] [id number] / / Screw 3.5mm 15mm Slf-Tap Cortx Evos Strl Implanted:Qty: 5 on 02/25/2022 by Rasta Jimenes MD at [facility] Left: [employer] [id number] / / Screw 3.5mm 16mm Slf-Tap Cortx Evos Strl Implanted:Qty: 2 on 02/25/2022 by Rasta Jimenes MD at [facility] Left: [employer] [id number] / / Scrw 3.5mm 18mm Slf-Tap Cortx Evos Strl Implanted:Qty: 1 on 02/25/2022 by Rasta Jimenes MD at [facility] Left: [employer] [id number] / / Screw 3.5mm 19mm Slf-Tap Cortx Evos Strl Implanted:Qty: 1 on 02/25/2022 by Rasta Jimenes MD at [facility] Left: [employer] [id number] / / 3.5mm Compression Plate Implanted:Qty: 1 on 02/25/2022 by Rasta Jimenes MD at [facility] Left: [employer] [id number] / / Radial Shaft Plate Implanted:Qty: 1 on 02/25/2022 by Rasta Jimenes MD at [facility] Left: Arm [employer] [id number] / / Synthes/Depuy 3.5mm Crtx Screw/Low Prof Hd Self-Tappping/S trdrv/54mm-Ster Ref#[id number] Implanted:Qty: 1 on 02/26/2022 at [facility] Left: Ankle 06/24/2026 [id number] / / [id number] Snythes/Depuy 2.7mm/3.5mm Lcp Lateral Distal Fibula Plate Ref#[id number] Implanted:Qty: 1 on 02/26/2022 by Jose Elias Baker DO at [facility] Left: Ankle .145S / / Screw 3.5mm 6mm 16mm 2.5mm Ft Slf-Tap Implanted:Qty: 2 on 02/26/2022 by Jose Elias Baker DO at [facility] Left: Ankle Synthes [employer]sa 204.816 / / Screw 3.5mm 6mm 60mm Slf-Tap Sm Hex Sckt Implanted:Qty: 1 on 02/26/2022 by Joes Elias Baker DO at [facility] Left: Ankle [employer] 204.860 / / Screw 2.7mm 2.1mm 14mm T8 Slf-Tap Lck Implanted:Qty: 1 on 02/26/2022 by Jose Elias Baker DO at [facility] Left: Ankle Synthe[employer] 202.214 / / Screw 2.7mm 2.1mm 18mm T8 Slf-Tap Lck Implanted:Qty: 2 on 02/26/2022 by Jose Elias Baker DO at [facility] Left: Ankle [employer] 202.218 / / Screw 2.7mm 2.1mm 20mm T8 Slf-Tap Lck Implanted:Qty: 1 on 02/26/2022 by Jose Elias Baker DO at [facility] Left: Ankle Synthe[employer] 202.220 / / Screw 4mm 6mm 18mm Ft Canc Sm Hex Sckt Implanted:Qty: 1 on 02/26/2022 at [facility] Left: Ankle Synthes [employer] [id number] / / Explanted Type Area Refrigeration Supervisor Device Identifier Shelf Expiration Date Model / Serial / Lot Screw 2.7mm 5mm 16mm T8 Slf-Tap Strdr Explanted:Qty: 1 on 02/26/2022 by Jose Elias Baker DO at [facility] Left: Ankle Synthes [employer] [id number] / / Procedures Procedure Name Priority Date/Time Associated Diagnosis Comments CT CHEST WO CONTRAST Routine 05/04/2024 10:52 AM LEARNING SOLUTIONS SPECIALIST Dissection of descending thoracic aorta from Last 3 Months Results * CT CHEST WO CONTRAST (05/04/2024 10:52 AM LEARNING SOLUTIONS SPECIALIST) Anatomical Region Laterality Modality Chest Computed Tomogra phy 05/04/2024 11:0 8 AM LEARNING SOLUTIONS SPECIALIST Impressions 05/04/2024 11:14 AM LEARNING SOLUTIONS SPECIALIST Impression: 1.Postprocedural changes related to repair of descending thoracic aorta with stent graft in the proximal descending thoracic aorta. No aneurysmal dilation of the thoracic aorta. 2.No acute process in the chest. > Interpreting Provider: Juan Carlos Frausto on 05/04/2024 11:14 AM Narrative 05/04/2024 11:14 AM LEARNING SOLUTIONS SPECIALIST PROCEDURE: CT CHEST WO CONTRAST, DATE/TIME OF EXAM: 05/04/2024 10:53 AM, LOCATION [facility] INDICATION: I71.012: Dissection of descending thoracic aorta (HCC) ADDITIONAL CLINICAL INFORMATION: Ordering Provider Reason For Exam: Technologist Note: Additional: COMPARISON: CT chest 04/24/2023. TECHNIQUE: CT of the chest was performed without contrast according to standard protocol. Findings: Evaluation of visceral and vascular structures is degraded due to lack of intravenous contrast administration. Lower Neck and Axillae: Normal. Lungs: Mild bilateral dependent atelectasis is present. No suspicious pulmonary nodules are identified. No pleural fluid or pneumothorax is present. Heart and Pericardium: The cardiac chambers are normal in size. No pericardial fluid or thickening is present. The coronary arteries are atherosclerotic. Mediastinum and Vanessa: No enlarged lymph nodes are present. Calcified granulomas in the right hilum. Thoracic Vasculature: The aorta and its branch vessels are atherosclerotic. Redemonstration of stent graft within the descending thoracic aorta. No thoracic aortic aneurysm noted. Bones and Chest Wall: Bone windows demonstrate no suspicious lytic or blastic lesions. The visible osseous structures are intact. Degenerative changes are seen in the spine. Postsurgical changes related to posterior fusion involving the thoracic spine. Old fracture deformities involving the right ribs. Upper Abdomen: Calcified granulomas in the spleen. Otherwise the remaining visible portions of the upper abdominal organs are normal. Procedure Note Juan Carlos Frausto MD - 05/04/2024 PROCEDURE: CT CHEST WO CONTRAST, DATE/TIME OF EXAM: 05/04/2024 10:53 AM, LOCATION [facility] INDICATION: I71.012: Dissection of descending thoracic aorta (HCC) ADDITIONAL CLINICAL INFORMATION: Ordering Provider Reason For Exam: Technologist Note: Additional: COMPARISON: CT chest 04/24/2023. TECHNIQUE: CT of the chest was performed without contrast according to standard protocol. Findings: Evaluation of visceral and vascular structures is degraded due to lackof intravenous contrast administration. Lower Neck and Axillae: Normal. Lungs: Mild bilateral dependent atelectasis is present. No suspicious pulmonary nodules are identified. No pleural fluid or pneumothorax is present. Heart and Pericardium: The cardiac chambers are normal in size. No pericardial fluid orthickening is present. The coronary arteries are atherosclerotic. Mediastinum and Vanessa: No enlarged lymph nodes are present. Calcified granulomas in the right hilum. Thoracic Vasculature: The aorta and its branch vessels are atherosclerotic. Redemonstration of stent graft within the descending thoracic aorta. No thoracic aortic aneurysm noted. Bones and Chest Wall: Bone windows demonstrate no suspicious lytic or blastic lesions. The visible osseous structures are intact. Degenerative changes are seen inthe spine. Postsurgical changes related to posterior fusion involving the thoracic spine. Old fracture deformities involving the right ribs. Upper Abdomen: Calcified granulomas in the spleen. Otherwise the remaining visible portions of the upper abdominal organs are normal. Impression: 1.Postprocedural changes related to repair of descending thoracic aorta with stent graft in the proximal descending thoracic aorta. Noaneurysmal dilation of the thoracic aorta. 2.No acute process in the chest. > Interpreting Provider: Juan Carlos Frausto on 05/04/2024 11:14 AM Hilda Asher MD CT ORDERABLES from Last 3 Months Advance Directives * Full Code (Latest Code Status on File) Date Activated Date Inactivated Comments 04/10/2022 1:54 PM 04/11/2022 6:33 PM * Full Code Date Activated Date Inactivated Comments 02/20/2022 7:22 PM 03/05/2022 7:41 PM Care Teams Clinical Systems Analyst Relationship Specialty Start Date End Date Maurice Mary MD [address] [place] [phone] PCP - General Family Medicine 03/31/23
--- OUTSIDE RECORDS SUMMARY | 2024-07-25 03:41 | XMS_ITS | Continuity of Care Document ---
Author Organization [facility] Address [address] [place] [address] Phone Care Team Providers Care Jewelry Bearing Maker Name Role Phone Jazmyn Vaughn Unavailable Unavailable Advance Directives Directive Yes / No Effective Date File Name No Information Encounters Encounter Description Practice Location Reason(s) For Visit Diagnoses Date Provider Providers Copied on Encounter [facility], [address], [place], [place], [id number], [place] tel:[phone] [facility] No Information Apr-2 0-200 [address] Joh[address] Eldridge. [address] , [address], [place], [address], [place]. tel:[phone] Family History Family Member Type Diagnosis Age At Onset No Information Payers Payer name Insurance type Covered libertarian ID Authoriza tion(s) No Information Social History Type Description Quantity Date Captured Comments Sex Male Smoking Status No Information Chief Complaint And Reason For Visit No Information Reason For Referral Reason For Referral No Information History Of Present Illness Encounter Date Complaint History Of Prese nt Illness No Information Functional Status Date Functional Assessmen t No Information Instructions Date Instruction Additional Infor mation No Information Assessments Type Assessment Date No Information Patient Care Teams Name Effective Dates (start - stop) Status Members No Information
--- OUTSIDE RECORDS SUMMARY | 2024-07-25 03:41 | XMS_ITS | Clinical Summary ---
Author Organization [facility] Address [address] [place] [address] Care Team Providers Care Bilingual Counter Sales Retail Name Role Phone None, Provider MD Primary Care Provider Unavaila ble Social History Tobacco Use Types Packs/Day Years Used Date Smoking Tobacco: Never Assessed Sex and Gender Information Value Date Recorded Sex Assigned at Not on file Legal Sex Male 7:12 PM CDT Gender Identity Not on file Sexual Orientation Not on file Plan of Treatment Health Maintenance Due Date Last Done Comments Hepatitis C 07/31/1963 Zoster Vaccines (1 of 2) 07/31/1997 Annual Medicare Wellness Visit 07/31/2012 Pneumococcal Vaccine: 65+ Years (1 of 1 - PCV) 07/31/2012 RSV Immunization or 60+ Years (1 - 1-dose 75+ series) 07/31/2022 COVID-19 Vaccine (1 - season) 2023 Influenza Adult (#1) 2024 02/01/2022, 02/13/2014, 02/09/2013, Additional history exists DTaP, Tdap and Td Vaccines (2 - Td or Tdap) 02/21/2032 02/20/2022 Meningococcal B Vaccine Aged Out No l onger eligible based on patient's age to complete this topic Meningococcal Vaccine Aged Out No trish nkiki eligible based on patient's age to complete this topic RSV Immunizations Under 20 Months Aged Out No longer eligible based on patient's age to complete this topic Insurance MEDICARE Care Teams Bilingual Counter Sales Retail Relationship Specialty Start Date End Date None, Provider, PCP - General 01/27/19
--- OUTSIDE RECORDS SUMMARY | 2024-07-25 03:41 | XMS_ITS | Encounter Summary ---
Author Organization [facility] Address [address] [place] [address] Care Team Providers Care Art Glass Designer Name Role Phone Maurice Mary MD Primary Care Provider [phone] Encounter Details Date Type Department Care Team (Late st Contact Info) Description 12/01/2022 Telephone [facility] - Centralized Scheduling [address] [place] [phone] Arlet Elaine, RESTAURANT HOSPITALITY MANAGER-[employer]AFTER [employer]STRUCTION [address] [phone] Social History Tobacco Use Types Packs/Day Years Used Date Smoking Tobacco: Never Smokeless Tobacco: Never Alcohol Use Standard Drinks/Week Comments Never 0 (1 standard drink = 0.6 oz pur e alcohol) AUDIT-C Answer Date Recorded Q1: How often do you have a drink containing alcohol? Never 04/10/2022 Q2: How many drinks containi ng alcohol do you have on a typical day when you are drinking? Patient does not drink Q3: How often do you have si [...] Sex Assigned at Male 03/19/2022 11:17 AM PATIENT PORTAL REPRESENTATIVE Gender Identity Male 03/19/2022 11:17 AM PATIENT PORTAL REPRESENTATIVE Sexual Orientation Straight 03/19/2022 11 :17 AM PATIENT PORTAL REPRESENTATIVE documented as of this encounter Functional Status Functional Status Response Date of Assess ment Is person deaf or have serious hearing difficult y? No 02/21/2022 Is person blind or have serious difficulty seein g? No 02/21/2022 Does person have serious dif ficulty walking/climbing stairs? No 02/21/2022 Does person have difficulty dressing/bathing? No 02/21/2022 Does person have difficulty doing errands alone? No 02/21/2022 Cognitive Status Response Date of Assessm ent Does person have difficulty concentrating/remembering/making decisions? No 02/21/2022 documented as of this encounter Plan of Treatment Not on file documented as of this encounter Visit Diagnoses Not on filedocumented in this encounter Care Teams Art Glass Designer Relationship Specialty Start Date End Date Maurice Mary MD [address] [place] [phone] PCP - General Family Medicine 03/31/23 documented as of this encounter
[2024-07-25 03:43] LABS: INR 1.4; Prothrombin Time 17.7 Seconds (11.1-14.7)
[2024-07-25 03:44] LABS: Partial Thromboplastin Time 31.7 Seconds (22.3-36.8)
[2024-07-25 03:59] LABS: Platelet Estimate Increased (Adequate)
[2024-07-25 04:00] LABS: Anisocytosis 2+; Microcytosis 2+ (NORMAL); Schistocytes Rare
[2024-07-25 04:01] LABS: Ovalocytes 1+
--- NOTE | 2024-07-25 04:08 | PC.NURSE ---
cta abd pelvis and ns 2l bolus
--- NOTE | 2024-07-25 04:09 | PC.NURSE ---
varinder zych - 2u prbc stat
[2024-07-25] MEDS: SODIUM CHLORIDE 0.9% IV 1,000 ML 999 ML IV CONT (04:14)
[2024-07-25 04:37] LABS: Lactic Acid Reflex 2.1 mmol/L (0.7-2.0)
[2024-07-25 04:49] LABS: Troponin I < 0.012 ng/mL (0.000-0.034)
--- NOTE | 2024-07-25 04:56 | ED_ITS ---
HPI - General Adult General Chief complaint: GI Bleed Stated complaint: Gi bleed/ hemorrhoids? Time Seen by Provider: 07/25/24 03:19 History of Present Illness HPI narrative: This is a 78-year-old male with a history of hemorrhoids and GI bleed presenting for rectal bleeding. He has been having intermittent large volume rectal bleeding since Thursday. Just prior to to arrival he syncopized in his bathroom falling forward and hitting his face. When his son helped him up he again lost consciousness in the patient's son states that he was breathing actively that point. They then brought him to the hospital for evaluation. Patient has history of polycythemia vera w/ jak2 mutation and receives regular phlebotomy. He is undergoing treatment by Dr. Dong. He was recently started on hydroxyurea for elevated platelets.. He does have a history of GI bleed with hemorrhoids. Patient states that he is dizzy when he sits up and feels weak. He is denying chest pain, abdominal pain, urinary symptoms, fevers or chills, nausea vomiting diarrhea. Related Data Home Medications ?Medication ?Instructions ?Recorded ?Confirmed ?Last Taken ?Type cholecalciferol (vitamin D3) 50 50 mcg PO DAILY 06/13/19 03/16/24 Unknown History mcg (2,000 unit) capsule Potassium-99 1 tab-cap PO DAILY 03/07/22 03/16/24 Unknown History omega 0-ioz-dma-fish oil 1,200 mg 1 cap PO BID 03/07/22 03/16/24 Unknown History (144 mg-216 mg) capsule (Fish Oil) aspirin 325 mg tablet,delayed 325 mg PO DAILY 09/30/22 03/16/24 Unknown History release sennosides 8.6 mg-docusate sodium 1 tab-cap PO QHS 09/30/22 03/16/24 Unknown History 50 mg capsule (Senna Plus) finasteride 5 mg tablet 5 mg PO DAILY 05/26/23 03/16/24 Unknown History docusate sodium 100 mg tablet 200 mg PO DAILY 07/08/23 03/16/24 Unknown History (Stool Softener) tpblwoiuyagr-zvsvtyni-jirdag tablet 1 tablet PO DAILY 07/08/23 03/16/24 Unknown History polyethylene glycol 3350 17 17 g PO DAILY 07/08/23 03/16/24 Unknown History gram/dose oral powder (Miralax) allopurinol 300 mg tablet 300 mg PO DAILY 07/06/24 07/06/24 Unknown History hydroxyurea 500 mg capsule (Hydrea) 500 mg PO DAILY 07/06/24 07/06/24 Unknown History lisinopril 10 mg tablet 20 mg PO DAILY 07/06/24 07/06/24 Unknown History Allergies Allergy/AdvReac Type Severity Reaction Status Date / Time No Known Allergies Allergy Unknown Uncoded 07/06/24 12:56 [facility] Past Medical History Medical History Collar bone fracture Essential hypertension Impaired glucose tolerance Rectal bleeding Rib fracture T11 vertebral fracture Surgical History Surgical History H/O knee surgery History of knee replacement Hx of repair of dissecting thoracic aortic aneurysm, [place]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 Family History Family History Mother Patient's mother is in good health Father Family history of coronary artery disease Social History Social History Smoking packs per day: 2.5 Smoking cigarettes per day: 50.0 Years smoked: 30 Smoking pack-years: 75.00 Smoking status: Former smoker Tobacco type: cigarettes Second hand tobacco smoke exposure: Yes Smoking end date: 04/27/84 Alcohol intake: current Substance use: never Substance use type: does not use Lack of Transportation: No Lack of Food: Never True Current Housing: I Have Housing Concerned About Future Housing: No Difficulty Paying Gas/Electric Bills: No Difficulty Paying for Meds: No Currently Unemployed: No Education: High School Diploma/GED Difficulty w/ Childcare or Family Care: No Living arrangements: with family Spiritual care concerns: No Exam 2 Narrative: APPEARANCE: No apparent distress. Head: atraumatic. EYES: EOMI, NOSE: Atraumatic NECK: Trachea midline RESPIRATORY: No increased rate of breathing clear to auscultation CARDIOVASCULAR: Tachycardic ABDOMINAL: Soft nontender no guarding rebound RECtal Exam: Natalie red blood in the rectal vault MUSCULOSKELETAl: No obvious deformities NEURO: Alert. Moving 4/4 extremities SKIN:: Warm, dry. Normal color PSYCHIATRIC: Normal affect Course Vital Signs Vital signs: Vital Signs Temperature 97.2 F L 07/25/24 03:14 Pulse Rate 91 07/25/24 03:14 Respiratory Rate 15 07/25/24 03:14 Blood Pressure 110/76 07/25/24 03:14 Pulse Oximetry 97 07/25/24 03:14 Oxygen Delivery Room Air 07/25/24 03:14 Temperature 97.2 F L 07/25/24 03:14 Pulse Rate 91 07/25/24 03:14 Respiratory Rate 15 07/25/24 03:14 Blood Pressure 110/76 07/25/24 03:14 Pulse Oximetry 97 07/25/24 03:14 Oxygen Delivery Room Air 07/25/24 03:14 Medical Decision Making MDM Narrative Medical decision making narrative: -Course: 78-year-old male presenting with 2 days of rectal bleeding. Patient had multiple syncopal events at home just prior to arrival. He has natalie red blood on rectal exam. Hemoglobin is 8.8 from 15.2 on 07/06/24. Given the patient's syncope he will be transfused 2 units of packed red blood cells. CTA showed diverticulosis and some fat stranding around the junction left colon and sigmoid colon which weight may represent mild diverticulitis. No extraluminal air abscess. Dr. Pappas was consulted. We discussed the case and he believes that this is most likely a diverticular bleed. No antibiotics at this time. Patient will be admitted the hospital and will need prep for colonoscopy. -DDX includes but is not limited to: Diverticular bleed, hemorrhoids, -Co-morbidities complicating care: Diverticulosis, hemorrhoids, neoplasm -Independent interpretation of studies: White count 24. White count is chronically elevated. Hemoglobin 8.8 from a baseline of 15.2 several weeks ago. Platelets 824 Lactic 2.1 Kidney function at baseline Troponin negative. Independent EKG interpretation: Rhythm [sinus], Rate [84], [place] -[normal], [place] -[normal], QRS [narrow], QTC [normal], T waves -[negative for concerning inversions], ST Segments - [Negative for concerning elevations] Final interpretations: [Normal sinus rhythm with frequent PVCs -Discussion of Management/Consultants: Elyse Saavedra Vital Signs Vital Signs: Vital Signs Temperature 97.2 F L 07/25/24 03:14 Pulse Rate 91 07/25/24 03:14 Respiratory Rate 15 07/25/24 03:14 Blood Pressure 110/76 07/25/24 03:14 Pulse Oximetry 97 07/25/24 03:14 Oxygen Delivery Room Air 07/25/24 03:14 Temperature 97.2 F L 07/25/24 03:14 Pulse Rate 91 07/25/24 03:14 Respiratory Rate 15 07/25/24 03:14 Blood Pressure 110/76 07/25/24 03:14 Pulse Oximetry 97 07/25/24 03:14 Oxygen Delivery Room Air 07/25/24 03:14 Lab Data 07/25/24 03:24 07/25/24 03:24 Labs: Lab Results 07/25/24 07/25/24 Range/Units 03:24 04:22 WBC 24.4 H (4.5-10.0) K/mm3 RBC 4.39 L (4.6-6.20) M/mm3 Hgb 8.8 L D (14.0-18.0) g/dL Hct 30.2 L (42.0-52.0) % MCV 68.8 L (80-100) fl MCH 20.0 L (26-34) pg MCHC 29.1 L (32-36) g/dl RDW 24.7 H (11.5-14.5) % Plt Count 824 H D (150-375) k/mm3 MPV 10.3 (7.4-10.4) fl Immature Gran % (Auto) 0.9 H (0-0.5) % Neut % (Auto) 86.5 H (45.5-73.1) % Lymph % (Auto) 5.4 L (18.3-44.2) % [place] % (Auto) 4.6 (2.6-8.5) % Eos % (Auto) 1.0 (0-4.4) % Baso % (Auto) 1.6 H (0.2-1.2) % Lymph # (Auto) 1.33 (0.9-3.2) K/mm3 [place] # (Auto) 1.1 H (0.1-0.6) K/mm3 Eos # (Auto) 0.2 (0-0.3) K/mm3 Baso # (Auto) 0.4 H (0.0-0.1) K/mm3 Abs Immat Gran (auto) 0.23 H (0.00-0.031) K/mm3 Absolute Neuts (auto) 21.1 H (1.3-6.7) K/mm3 Absolute Nucleated RBC 0.020 H (0.0-0.012) K/mm3 Band Neutrophils % Not Reportable Nucleated RBC % 0.1 (0.0-0.2) % Platelet Estimate Increased (Adequate) Anisocytosis 2+ Microcytosis 2+ (NORMAL) Ovalocytes 1+ Schistocytes Rare PT 17.7 H (11.1-14.7) Seconds INR 1.4 APTT 31.7 (22.3-36.8) Seconds Sodium 137 (137-145) mmol/L Potassium 4.1 (3.4-5.0) mmol/L Chloride 107 (98-107) mmol/L Carbon Dioxide 20 L (22-30) mmol/L Anion Gap 10 (4-12) mmol/L BUN 35 H D (9-20) mg/dL Creatinine 1.03 (0.7-1.3) mg/dL Estim Creat Clear Calc 58 ml/min Estimated GFR > 60 (59 - ) Glucose 187 H (65-110) mg/dL Lactic Acid 2.1 H (0.7-2.0) mmol/L Calcium 7.9 L (8.4-10.2) mg/dL Total Bilirubin 0.8 (0.2-1.3) mg/dL AST 17 (17-59) U/L ALT 14 (6-50) U/L Alkaline Phosphatase 69 (38-126) U/L Troponin I < 0.012 (0.000-0.034) ng/mL Total Protein 6.0 L (6.3-8.2) g/dL Albumin 3.0 L (3.5-5.1) g/dL Blood Type O Positive Antibody Screen Negative Crossmatch See Detail Critical Care Time Critical Care Time Critical Care Time: Yes Total Critical Care Time: 35 Discharge Plan Discharge Clinical Impression: Acute GI bleeding, Anemia Patient Disposition: Still a Patient Condition: Stable Patient Language: Gambian Prescriptions: No Action hydroxyurea [Hydrea] 500 mg capsule 500 mg PO DAILY allopurinol 300 mg tablet 300 mg PO DAILY lisinopril 10 mg tablet 20 mg PO DAILY aspirin 325 mg tablet,delayed release (DR/EC) 325 mg PO DAILY Senna Plus 8.6-50 mg capsule 1 tab-cap PO QHS finasteride 5 mg tablet 5 mg PO DAILY Linzess 290 mcg capsule 290 mcg PO .daily Qty: 90 4RF cholecalciferol (vitamin D3) 50 mcg (2,000 unit) capsule 50 mcg PO DAILY polyethylene glycol 3350 [Miralax] 17 gram/dose Powder 17 g PO DAILY docusate sodium [Stool Softener] 100 mg Tablet 200 mg PO DAILY Centrum Silver Tablet 1 tablet PO DAILY melatonin 3 mg tablet 3 mg PO QHS Qty: 90 1RF carvedilol 6.25 mg tablet See Rx Instructions .ROUTE .COMPLEX Qty: 180 1RF Dose Instruction: TAKE 1 TABLET BY MOUTH EVERY 12 HOURS WITH FOOD OR MEAL Patient Comments: . Rx Instructions: TAKE 1 TABLET BY MOUTH EVERY 12 HOURS WITH FOOD OR MEAL simvastatin 40 mg tablet 40 mg PO DAILY Qty: 90 1RF ipratropium bromide 42 mcg (0.06 %) spray,non-aerosol 2 spray intranasal TID PRN (Reason: allergy symptoms) Qty: 15 5RF Rx Instructions: administer into each nostril tamsulosin 0.4 mg capsule See Rx Instructions .ROUTE .COMPLEX Qty: 180 1RF Dose Instruction: TAKE 1 CAPSULE BY MOUTH EVERY MORNING Rx Instructions: TAKE 2 CAPSULE BY MOUTH EVERY MORNING omega 1-hcv-rzy-fish oil [Fish Oil] 1,200 (144-216) mg Capsule 1 cap PO BID Potassium-99 1 tab-cap PO DAILY Rx Instructions: Take by mouth daily as directed (DME) Shower chair See Rx Instructions .Route .MEDSUPPLY Qty: 1 0RF Rx Instructions: As directed (DME) Drop-arm bedside commode See Rx Instructions .Route .MEDSUPPLY Qty: 1 0RF Rx Instructions: left side arm of the commode needs to be the drop arm side. As directed Follow-up/Referrals: Maurice Mary MD [Primary Care Provider] -
--- NOTE | 2024-07-25 05:03 | ECG_ITS ---
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
[2024-07-25] MEDS: TUBING, BLOOD PLUM PUMP TUBING 1 EACH XX ×2 (05:17→15:50)
[2024-07-25] MEDS: SODIUM CHLORIDE 0.9% IV 250 ML 30 ML IV CONT ×2 (05:17→15:50)
[2024-07-25 06:25] LABS: Reflex Lactic Acid Yes or No Add Lactic
--- NOTE | 2024-07-25 07:25 | P.CONGI_ITS ---
Assessment and Plan Assessment and plan (1) Acute GI bleeding: Code(s): K92.2 - Gastrointestinal hemorrhage, unspecified Status: Acute Assessment and Plan: The patient presents with recurrent lower gastrointestinal bleeding, likely secondary to diverticulosis. A CT angiogram indicates no active bleeding at this time. Given a recent colonoscopy within the past year, repeat colonoscopy is deferred. The current plan is to monitor hemodynamic stability and hematocrit levels closely for 24-48 hours. Should bleeding recur, we will reassess and discuss the optimal intervention, including repeat colonoscopy versus angiography at a tertiary center. Surgical consultation will be obtained as needed GI Consult Note Consult date/time: 07/25/24 07:25 Reason for consult: lower GI bleeding HPI: Antonio Dobbs is a 78 year old male who had an episode of lower GI bleeding 1 year ago. Colonoscopy showed multiple diverticula and internal hemorrhoids, no AVMs polyps or tumors. He also has a history of polycythemia vera for which he is being evaluated by Hematology. For yesterday he started passing several episodes of maroon stools associated with dizziness. On this morning's CT angiogram there was no evidence of extravasation. 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 Family History Family History Mother Patient's mother is in good health Father Family history of coronary artery disease Social History Social History Smoking packs per day: 2.75 Smoking cigarettes per day: 55.0 Years smoked: 31 Smoking pack-years: 85.25 Smoking status: Former smoker Tobacco type: cigarettes Second hand tobacco smoke exposure: Yes Smoking end date: 04/27/84 Alcohol intake: current Substance use: never Substance use type: does not use Lack of Transportation: No Lack of Food: Never True Current Housing: I Have Housing Concerned About Future Housing: No Difficulty Paying Gas/Electric Bills: No Difficulty Paying for Meds: No Currently Unemployed: No Education: High School Diploma/GED Difficulty w/ Childcare or Family Care: No Living arrangements: with family Spiritual care concerns: No Meds Home Medications and Allergies Home Medications ?Medication ?Instructions ?Recorded ?Confirmed ?Type cholecalciferol (vitamin D3) 50 50 mcg PO DAILY 06/13/19 03/16/24 History mcg (2,000 unit) capsule Potassium-99 1 tab-cap PO DAILY 03/07/22 03/16/24 History omega 8-qrq-bwd-fish oil 1,200 mg 1 cap PO BID 03/07/22 03/16/24 History (144 mg-216 mg) capsule (Fish Oil) Shower chair #1 ea 03/27/22 03/16/24 Rx Drop-arm bedside commode #1 ea 03/27/22 03/16/24 Rx aspirin 325 mg tablet,delayed 325 mg PO DAILY 09/30/22 03/16/24 History release sennosides 8.6 mg-docusate sodium 1 tab-cap PO QHS 09/30/22 03/16/24 History 50 mg capsule (Senna Plus) finasteride 5 mg tablet 5 mg PO DAILY 05/26/23 03/16/24 History docusate sodium 100 mg tablet 200 mg PO DAILY 07/08/23 03/16/24 History (Stool Softener) qyqxkukcvbap-idcfvbgm-btyblo tablet 1 tablet PO DAILY 07/08/23 03/16/24 History polyethylene glycol 3350 17 17 g PO DAILY 07/08/23 03/16/24 History gram/dose oral powder (Miralax) melatonin 3 mg tablet 3 mg PO QHS #90 tabs 07/23/23 03/16/24 Rx carvedilol 6.25 mg tablet See Rx Instructions .Route 11/16/23 03/16/24 Rx .COMPLEX #180 tabs simvastatin 40 mg tablet 40 mg PO DAILY #90 tabs 04/12/24 04/15/24 Rx ipratropium bromide 42 mcg (0.06 2 spray intranasal TID PRN allergy 04/15/24 04/15/24 Rx %) nasal spray symptoms #15 mL tamsulosin 0.4 mg capsule See Rx Instructions .Route 04/28/24 05/11/24 Rx .COMPLEX #180 caps linaclotide 290 mcg capsule 290 mcg PO .daily #90 caps 05/02/24 05/11/24 Rx (Linzess) allopurinol 300 mg tablet 300 mg PO DAILY 07/06/24 07/06/24 History hydroxyurea 500 mg capsule (Hydrea) 500 mg PO DAILY 07/06/24 07/06/24 History lisinopril 10 mg tablet 20 mg PO DAILY 07/06/24 07/06/24 History Allergies Allergy/AdvReac Type Severity Reaction Status Date / Time No Known Allergies Allergy Unknown Uncoded 07/25/24 07:21 Vital Signs Vital Signs - 24 hr 07/25/24 03:14 07/25/24 05:03 07/25/24 05:08 Temperature 97.2 F L 97.8 F Pulse Rate 91 86 89 Respiratory Rate 15 20 17 Blood Pressure 110/76 106/56 L 106/56 L Pulse Oximetry 97 97 95 Oxygen Delivery Room Air 07/25/24 05:22 07/25/24 06:23 Temperature 97.4 F L 97.8 F Pulse Rate 86 90 Respiratory Rate 18 18 Blood Pressure 118/62 102/56 L Pulse Oximetry 95 95 Oxygen Delivery Exam 2 Narrative: APPEARANCE: No apparent distress. Head: atraumatic. EYES: EOMI, NOSE: Atraumatic NECK: Trachea midline RESPIRATORY: No increased rate of breathing clear to auscultation CARDIOVASCULAR: Tachycardic ABDOMINAL: Soft nontender no guarding rebound RECtal Exam: Eric red blood in the rectal vault MUSCULOSKELETAl: No obvious deformities NEURO: Alert. Moving 4/4 extremities SKIN:: Warm, dry. Normal color PSYCHIATRIC: Normal affect Results Labs 07/25/24 03:24 07/25/24 03:24 Labs: Short CBC 07/25/24 Range/Units 03:24 WBC 24.4 H (4.5-10.0) K/mm3 Hgb 8.8 L D (14.0-18.0) g/dL Hct 30.2 L (42.0-52.0) % Plt Count 824 H D (150-375) k/mm3 BMP 07/25/24 03:24 Sodium 137 Potassium 4.1 Chloride 107 Carbon Dioxide 20 L BUN 35 H D Creatinine 1.03 Glucose 187 H Calcium 7.9 L Cardiac Enzymes 07/25/24 Range/Units 04:22 Troponin I < 0.012 (0.000-0.034) ng/mL Liver Function 07/25/24 Range/Units 03:24 Total Bilirubin 0.8 (0.2-1.3) mg/dL AST 17 (17-59) U/L ALT 14 (6-50) U/L Alkaline Phosphatase 69 (38-126) U/L Albumin 3.0 L (3.5-5.1) g/dL
[2024-07-25 07:29] LABS: Hematocrit 31.4 % (42.0-52.0); Hemoglobin 9.3 g/dL (14.0-18.0)
[2024-07-25 07:45] LABS: Lactic Acid 3.5 mmol/L (0.7-2.0)
[2024-07-25 07:57] LABS: Troponin I < 0.012 ng/mL (0.000-0.034)
[2024-07-25 10:29] LABS: Iron 30 ug/dL (49-181)
[2024-07-25] MEDS: CHOLECALCIFEROL 1,000 UNITS TABLET 2000 UNITS PO (10:29)
[2024-07-25] MEDS: LACTATED RINGERS 1,000 ML 100 ML IV CONT (10:29)
[2024-07-25] MEDS: PANTOPRAZOLE SODIUM IV 40 MG VIAL IV PUSH (10:30)
[2024-07-25] MEDS: metroNIDAZOLE 500 MG/ISO 100ML 500 MG/100 ML BAG 100 MG IVPB (10:38)
[2024-07-25 10:39] LABS: Percent Iron Saturation 11 % (20-50)
[2024-07-25 10:39] LABS: Add Urine Microscopic? NO; Appearance Urine Clear (Clear); Bilirubin Urine Negative (Negative); Blood Urine Negative (Negative); Color Urine Yellow (Yellow); Glucose Urine UA Negative (Negative); Ketones Urine Trace mg/dL (Negative); Leukocyte Esterase Ur Negative LEU/UL (Negative); Nitrate Urine Negative (Negative); Protein Urine Negative (Negative); Specific Grav Ur > 1.045 (1.001-1.035); Urobilinogen Urine 0.2 mg/dL (<2.0)
[2024-07-25 12:07] LABS: Toxigenic C. Diff NEGATIVE (NEGATIVE)
[2024-07-25 12:56] LABS: Lactic Acid Reflex 3.2 mmol/L (0.7-2.0)
[2024-07-25 13:56] LABS: Hematocrit 27.3 % (42.0-52.0); Hemoglobin 8.1 g/dL (14.0-18.0)
--- NOTE | 2024-07-25 15:11 | P.HP_ITS ---
H&P: HPI History of Present Illness Date/Time: 07/25/24 15:11 Chief Complaint: Blood in stool Narrative: Patient is a 78-year-old male who presented to the emergency department with complaints of bloody stool. Per patient since Thursday he has had multiple episodes diarrhea with blood did not notice any blood clots. Patient states he did have a history of internal hemorrhoids and initially assumed the blood was from them however his episodes of bloody stool continued in 3 days he became extremely dizzy so is going to faint and fell at home. Patient does have history of polycythemia vera and is following with Dr. Dong in Hematology use recently started on hydroxyurea and does do regular phlebotomy O/P. at bedside reports patient had lost consciousness but did not his head patient was breathing heavily with some mild confusion and patient reports heart rate was racing. At time of assessment patient denied any chest pain, shortness a breath, nausea, vomiting, or abdominal pain but continued to endorse dizziness. Hemoglobin was 8.8 on arrival however 19 days prior was 15.2. Patient's WBC 24.[address] angio abdomen showing diverticulitis no indication for active bleed. Patient was then admitted to IMU for further evaluation and treatment of possible GI bleed, sepsis without septic shock secondary to diverticulitis. Review of Systems Review of Systems: All systems reviewed & are unremarkable except as noted in HPI and below PMFSH Past Medical History Medical History (Updated 07/25/24 @ 15:36 by Veena Edouard, LISA) Rectal bleeding Rib fracture T11 vertebral fracture Essential hypertension Impaired glucose tolerance Collar bone fracture Surgical History Surgical History Hx of repair of dissecting thoracic aortic aneurysm, Alda type B History of knee replacement H/O knee surgery Family History Family History Mother Patient's mother is in good health Father Family history of coronary artery disease Social History Social History Smoking packs per day: 2.75 Smoking cigarettes per day: 55.0 Years smoked: 31 Smoking pack-years: 85.25 Smoking status: Former smoker Tobacco type: cigarettes Second hand tobacco smoke exposure: Yes Smoking end date: 04/27/84 Alcohol intake: never Substance use: never Substance use type: does not use Do You Feel Safe in your Home?: Yes Lack of Transportation: No Lack of Food: Never True Current Housing: I Have Housing Concerned About Future Housing: No Difficulty Paying Gas/Electric Bills: No Difficulty Paying for Meds: No Currently Unemployed: No Education: Trade/Vocational Certificate Difficulty w/ Childcare or Family Care: No Living arrangements: with family Spiritual care concerns: No Meds Home Medications and Allergies Home Medications ?Medication ?Instructions ?Recorded ?Confirmed ?Type cholecalciferol (vitamin D3) 50 50 mcg PO DAILY 06/13/19 07/25/24 History mcg (2,000 unit) capsule Potassium gluconate 1 tab-cap PO DAILY 03/07/22 07/25/24 History omega 3-jxw-zxk-fish oil 1,200 mg 1 cap PO BID 03/07/22 07/25/24 History (144 mg-216 mg) capsule (Fish Oil) aspirin 325 mg tablet,delayed 325 mg PO DAILY 09/30/22 07/25/24 History release finasteride 5 mg tablet 5 mg PO DAILY 05/26/23 07/25/24 History docusate sodium 100 mg tablet 300 mg PO DAILY 07/08/23 07/25/24 History (Stool Softener) polyethylene glycol 3350 17 17 g PO DAILY 07/08/23 07/25/24 History gram/dose oral powder (Miralax) melatonin 3 mg tablet 3 mg PO QHS #90 tabs 07/23/23 07/25/24 Rx carvedilol 6.25 mg tablet See Rx Instructions .Route 11/16/23 07/25/24 Rx .COMPLEX #180 tabs simvastatin 40 mg tablet 40 mg PO DAILY #90 tabs 04/12/24 07/25/24 Rx ipratropium bromide 42 mcg (0.06 2 spray intranasal TID PRN allergy 04/15/24 07/25/24 Rx %) nasal spray symptoms #15 mL tamsulosin 0.4 mg capsule See Rx Instructions .Route 04/28/24 07/25/24 Rx .COMPLEX #180 caps linaclotide 290 mcg capsule 290 mcg PO .daily #90 caps 05/02/24 07/25/24 Rx (Linzess) allopurinol 300 mg tablet 300 mg PO DAILY 07/06/24 07/25/24 History hydroxyurea 500 mg capsule (Hydrea) 500 mg PO DAILY 07/06/24 07/25/24 History lisinopril 10 mg tablet 20 mg PO DAILY 07/06/24 07/25/24 History Allergies Allergy/AdvReac Type Severity Reaction Status Date / Time No Known Allergies Allergy Verified 07/25/24 09:45 Vital Signs Vital Signs - 24 hr 07/25/24 03:14 07/25/24 05:03 07/25/24 05:08 Temperature 97.2 F L 97.8 F Pulse Rate 91 86 89 Respiratory Rate 15 20 17 Blood Pressure 110/76 106/56 L 106/56 L Pulse Oximetry 97 97 95 Oxygen Delivery Room Air 07/25/24 05:22 07/25/24 06:23 07/25/24 06:47 Temperature 97.4 F L 97.8 F 98.5 F Pulse Rate 86 90 88 Respiratory Rate 18 18 20 Blood Pressure 118/62 102/56 L 118/51 L Pulse Oximetry 95 95 99 Oxygen Delivery 07/25/24 06:55 07/25/24 08:00 07/25/24 08:00 Temperature 98.1 F Pulse Rate 110 H 95 99 Respiratory Rate 16 Blood Pressure 98/53 L Pulse Oximetry 99 Oxygen Delivery 07/25/24 10:00 07/25/24 11:24 07/25/24 12:00 Temperature 98 F Pulse Rate 97 98 95 Respiratory Rate 18 Blood Pressure 94/45 L Pulse Oximetry 98 Oxygen Delivery 07/25/24 14:00 Temperature Pulse Rate 93 Respiratory Rate Blood Pressure Pulse Oximetry Oxygen Delivery Exam Const: General: comfortable and no acute distress HENMT: Mouth: Yes moist mucous membranes Eyes: General: appearance normal, both eyes and all related structures Pupils: Equal, round and reactive pupils present Neck: Neck: supple and no JVD Resp: Effort & Inspection: normal respiratory effort Auscultation: clear to auscultation bilaterally Cardio: Rate: regular rate and tachycardic GI: GI Palp: Yes Soft to palpation Other: Non-tender Skin: General skin exam: no rashes or lesions noted Wounds: no wounds Other: Pale Neuro: Speech: normal speech Motor exam (neuro): 5/5 motor strength present throughout Sensory Exam: normal sensation Extrem: General: normal to inspection Psych: Mental Status: mental status grossly normal Affect: normal affect H&P: Results Labs Labs: Short CBC 07/25/24 07/25/24 07/25/24 Range/Units 03:24 07:18 13:49 WBC 24.4 H (4.5-10.0) K/mm3 Hgb 8.8 L D 9.3 L 8.1 L (14.0-18.0) g/dL Hct 30.2 L 31.4 L 27.3 L (42.0-52.0) % Plt Count 824 H D (150-375) k/mm3 BMP 07/25/24 03:24 Sodium 137 Potassium 4.1 Chloride 107 Carbon Dioxide 20 L BUN 35 H D Creatinine 1.03 Glucose 187 H Calcium 7.9 L Cardiac Enzymes 07/25/24 07/25/24 Range/Units 04:22 07:18 Troponin I < 0.012 < 0.012 (0.000-0.034) ng/mL Liver Function 07/25/24 Range/Units 03:24 Total Bilirubin 0.8 (0.2-1.3) mg/dL AST 17 (17-59) U/L ALT 14 (6-50) U/L Alkaline Phosphatase 69 (38-126) U/L Albumin 3.0 L (3.5-5.1) g/dL Urine 07/25/24 Range/Units 10:30 Urine Color Yellow (Yellow) Urine Appearance Clear (Clear) Urine pH 5.0 (5.0-9.0) Ur Specific [place] > 1.045 H (1.001-1.035) Urine Protein Negative (Negative) mg/dL Urine Glucose (UA) Negative (Negative) mg/dL Imaging CT scan - abdomen: Radiologist's impression: CT of the Abdomen and Pelvis: Indication: GI bleed Technique: 2.5 mm axial scans were obtained through the abdomen and pelvis following intravenous administration of 100 cc of Omnipaque 350. Dose reduction technique was used on this scan by utilizing automated exposure control and iterative reconstruction technique. The dose-length product (DLP) was 1309.75 mGy-cm. COMPARISON: 07/02/2023 Findings: Scans through the lung bases are unremarkable. The liver, spleen, pancreas, adrenals and kidneys are within normal limits. Small calcified gallstones are present. There are atherosclerotic calcifications of the aorta. No lymphadenopathy. No bowel obstruction. Prominent stool suggests constipation. Possible minimal diverticulitis at the distal descending colon. No abscess or free air. No distinct evidence for acute GI bleed. Images through the pelvis were performed. Urinary bladder unremarkable. No pelvic mass seen. No ascites. There is diffuse degenerative spondylosis of the lumbar spine. There is posterior fusion of the lower thoracic spine. Impression: No CT angiographic evidence for active GI bleeding. Possible mild acute diverticulitis of the distal descending colon. Cholelithiasis. Constipation. Assessment and Plan Assessment and plan (1) Acute GI bleeding: Code(s): K92.2 - Gastrointestinal hemorrhage, unspecified Status: Acute Assessment and Plan: Patient currently receiving treatment outpatient with Hematology for polycythemia recently started on hydroxyurea last colonoscopy year ago did show internal hemorrhoids. * CT angio showed no evidence of acute bleed however did show possible diverticulitis * Hgb 8.8 POA received 1 unit PRBCs improved to 9.3 however 6 hours later dropped hemoglobin to 8.1 * Transfused another unit of PRBCs * H&H q.6 hours * Protonic IV push b.i.d. * Clear liquid diet * GI consulted * Hold aspirin 324 * Likely defer colonoscopy at this time due to active infection with diverticulitis if possible will attempt to stabilize hemoglobin and medical management * Monitor patient's hemodynamics (2) Sepsis without septic shock: Code(s): A41.9 - Sepsis, unspecified organism Status: Acute Assessment and Plan: Tachycardia, leukocytosis Lactic acidosis and CT evidence of diverticulitis * Lactic 2.1>3.5>3.3 * Blood cultures pending * patient on Rocephin and Flagyl IV * Received fluid resuscitation emergency department * Monitor BP soft at this time could be secondary to anemia (3) Diverticulitis: Code(s): K57.92 - Diverticulitis of intestine, part unspecified, without perforation or abscess without bleeding Status: Acute Assessment and Plan: * CT ABD with diverticular * IV Rocephin and Flagyl * Clear liquid diet attempt to advance as tolerated * Blood cultures pending * Serial abdomen exam * PPI (4) Polycythemia: Code(s): D75.1 - Secondary polycythemia Status: Acute Assessment and Plan: * PLT 824 POA * Patient does phlebotomy O/P * Recently started on hydroxyurea * Hematology consulted (5) Iron deficiency anemia: Code(s): D50.9 - Iron deficiency anemia, unspecified Status: Acute Assessment and Plan: HX of iron deficiency anemia * Iron panel 30/283/11% * Last Ferritin 10.30 * Hematology consult in * Iron infusions daily (6) BPH (benign prostatic hyperplasia): Code(s): N40.0 - Benign prostatic hyperplasia without lower urinary tract symptoms Status: Acute Assessment and Plan: * Resume finasteride * Monitor for urinary retention (7) Essential hypertension: Code(s): I10 - Essential (primary) hypertension Status: Acute Assessment and Plan: * BP soft * Carvedilol and lisinopril held at this time * Can resume once BP tolerates (8) Hypotension: Code(s): I95.9 - Hypotension, unspecified Status: Acute Assessment and Plan: * BP soft 95/45 * Likely secondary to patient's anemia * 2 units PRBCs * IV fluid * Holding patient's carvedilol and lisinopril will resume when BP tolerates * BP per unit protocol Plan Code status: Full code per patient DVT prophylaxis: SCD's Stress ulcer prophylaxis: Protonix 40 BID PT/OT notes: NA Disposition: Patient was admitted to IMU for further evaluation and treatment possible GI bleed, sepsis without septic shock secondary to diverticulitis GI and Hematology have been consulted for further recommendations. 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 Hospitalist [facility] Advance Care Plan I have confirmed that the patient's Advanced Care Plan is present, code status is documented, or surrogate decision maker is listed in patient medical record.: Yes Medication Reconciliation I have utilized all available resources to obtain, update and review the patients current medications (includes all prescriptions, OTC, herbals, cannabi s, and nutritional supplements).: Yes The patient is not eligible for med reconciliation; the patient is in a emergent medical situation where delaying treatment would jeopardize the patients health.: No
--- NOTE | 2024-07-25 16:43 | WPDGIPROGNO ---
Progress Note: A&P Assessment and Plan (1) Acute GI bleeding: Code(s): K92.2 - Gastrointestinal hemorrhage, unspecified Status: Acute Assessment and Plan: The patient's clinical presentation is consistent with lower GI bleeding, most likely secondary to diverticular hemorrhage, mirroring his presentation from one year prior. This presentation is distinct from diverticulitis, which is primarily characterized by abdominal pain and extreme tenderness, not by significant bleeding or a decrease in hematocrit like this patient is currently experiencing. Antibiotic therapy is indicated for diverticulitis, not for diverticular bleeding. His CBC reflects his known polycythemia vera, with elevated hemoglobin, white blood cell count, and platelet count, and does not suggest a septic process. The patient can be advanced to a regular diet tomorrow. If his hemodynamic status remains stable, he can be monitored for an additional 24 hours and discharged. Subjective Date/time seen: 07/25/24 16:43 Interval history: Patient re-evaluated, no fever, no abdominal pain, feels well and has good appetite. Objective Data Vital Signs Vital Signs: Vital Signs - 24 hr 07/25/24 03:14 07/25/24 05:03 07/25/24 05:08 Temperature 97.2 F L 97.8 F Pulse Rate 91 86 89 Respiratory Rate 15 20 17 Blood Pressure 110/76 106/56 L 106/56 L Pulse Oximetry 97 97 95 Oxygen Delivery Room Air 07/25/24 05:22 07/25/24 06:23 07/25/24 06:47 Temperature 97.4 F L 97.8 F 98.5 F Pulse Rate 86 90 88 Respiratory Rate 18 18 20 Blood Pressure 118/62 102/56 L 118/51 L Pulse Oximetry 95 95 99 Oxygen Delivery 07/25/24 06:55 07/25/24 08:00 07/25/24 08:00 Temperature 98.1 F Pulse Rate 110 H 95 99 Respiratory Rate 16 Blood Pressure 98/53 L Pulse Oximetry 99 Oxygen Delivery 07/25/24 10:00 07/25/24 11:24 07/25/24 12:00 Temperature 98 F Pulse Rate 97 98 95 Respiratory Rate 18 Blood Pressure 94/45 L Pulse Oximetry 98 Oxygen Delivery 07/25/24 14:00 07/25/24 15:50 07/25/24 15:50 Temperature 98 F 98 F Pulse Rate 93 93 93 Respiratory Rate 20 20 Blood Pressure 130/50 L 130/50 L Pulse Oximetry 100 100 Oxygen Delivery 07/25/24 16:00 07/25/24 16:14 07/25/24 16:14 Temperature 98.1 F 98 F Pulse Rate 94 63 92 Respiratory Rate 20 18 Blood Pressure 113/46 L 117/56 L Pulse Oximetry 97 94 Oxygen Delivery Intake/Output Intake/Output: Intake & Output 07/22/24 07/23/24 07/24/24 07/25/24 23:59 23:59 23:59 23:59 Intake Total 1590 Output Total 725 Balance 865 Meds/Results Medications: Active Medications Generic Name Dose Route Start Last Admin Trade Name Freq PRN Reason Stop Dose Admin Acetaminophen 650 mg 07/25/24 09:40 Acetaminophen 325 Mg Tablet PO Q4H PRN Mild Pain (1-3) or Fever Hydrocodone Bitart/Acetaminophen 1 tab 07/25/24 09:40 Hydrocodone/Acetaminophen (*Crx) 5-325 Mg Tablet PO Q4H PRN Moderate Pain (4-6) Allopurinol 300 mg 07/26/24 09:00 Allopurinol 300 Mg Tablet PO DAILY GO Finasteride 5 mg 07/26/24 09:00 Finasteride 5 Mg Tablet PO DAILY GO Lactated Ringer's 1,000 mls @ 100 mls/hr 07/25/24 09:45 07/25/24 10:29 Lr - Lactated Ringers Iv IV CONT 100 mls/hr .Q10H GO Administration Sodium Chloride 250 mls @ 30 mls/hr 07/25/24 15:08 Normal Saline Iv IV CONT 07/25/24 23:27 .Q8H20M STA Iron Sucrose 100 mg/ Sodium 55 mls @ 220 mls/hr 07/26/24 09:00 Chloride IVPB DAILY GO Ipratropium Ethel 2 spray 07/25/24 09:36 Ipratropium Nasal [place] 0.06% 15 Ml Bottle NASAL TID PRN allergy symptoms Melatonin 3 mg 07/25/24 21:00 Melatonin 3 Mg Tablet PO QHS GO Ondansetron HCl 4 mg 07/25/24 09:40 Ondansetron Inj 4 Mg/2 Ml Vial IV PUSH Q6H PRN Nausea And Vomiting Simvastatin 40 mg 07/26/24 09:00 Simvastatin 20 Mg Tablet PO DAILY GO Tamsulosin HCl 0.4 mg 07/26/24 09:00 Tamsulosin Hcl 0.4 Mg Capsule PO DAILY GO Vitamin D 2,000 units 07/25/24 09:00 07/25/24 10:29 Cholecalciferol 1,000 Units Tablet PO 2,000 units DAILY GO Administration Radiology Results: ITS Impressions Abdomen/Pelvis CTA 07/25/24 05:54 Impression: No CT angiographic evidence for active GI bleeding. Possible mild acute diverticulitis of the distal descending colon. Cholelithiasis. Constipation. Head CT 07/25/24 05:54 Impression: No significant abnormality seen. Labs Labs: Laboratory Results - last 24 hr 07/25/24 07/25/24 07/25/24 03:24 04:22 07:18 WBC 24.4 H RBC 4.39 L Hgb 8.8 L D 9.3 L Hct 30.2 L 31.4 L MCV 68.8 L MCH 20.0 L MCHC 29.1 L RDW 24.7 H Plt Count 824 H D MPV 10.3 Immature Gran % (Auto) 0.9 H Neut % (Auto) 86.5 H Lymph % (Auto) 5.4 L [place] % (Auto) 4.6 Eos % (Auto) 1.0 Baso % (Auto) 1.6 H Lymph # (Auto) 1.33 [place] # (Auto) 1.1 H Eos # (Auto) 0.2 Baso # (Auto) 0.4 H Abs Immat Gran (auto) 0.23 H Absolute Neuts (auto) 21.1 H Absolute Nucleated RBC 0.020 H Band Neutrophils % Not Reportable Nucleated RBC % 0.1 Platelet Estimate Increased Anisocytosis 2+ Microcytosis 2+ Ovalocytes 1+ Schistocytes Rare PT 17.7 H INR 1.4 APTT 31.7 Sodium 137 Potassium 4.1 Chloride 107 Carbon Dioxide 20 L Anion Gap 10 BUN 35 H D Creatinine 1.03 Estim Creat Clear Calc 58 Estimated GFR > 60 Glucose 187 H Lactic Acid 2.1 H 3.5 H Calcium 7.9 L Iron 30 L TIBC 283 % Saturation 11 L Total Bilirubin 0.8 AST 17 ALT 14 Alkaline Phosphatase 69 Troponin I < 0.012 < 0.012 Total Protein 6.0 L Albumin 3.0 L Urine Color Urine Appearance Urine pH Ur Specific [place] Urine Protein Urine Glucose (UA) Urine Ketones Ur Blood (Man) Urine Nitrate Urine Bilirubin Urine Urobilinogen Leukocyte Esterase Rfl C. difficile (PCR) Blood Type O Positive Antibody Screen Negative Crossmatch See Detail 07/25/24 07/25/24 07/25/24 10:30 11:05 12:27 WBC RBC Hgb Hct MCV MCH MCHC RDW Plt Count MPV Immature Gran % (Auto) Neut % (Auto) Lymph % (Auto) [place] % (Auto) Eos % (Auto) Baso % (Auto) Lymph # (Auto) [place] # (Auto) Eos # (Auto) Baso # (Auto) Abs Immat Gran (auto) Absolute Neuts (auto) Absolute Nucleated RBC Band Neutrophils % Nucleated RBC % Platelet Estimate Anisocytosis Microcytosis Ovalocytes Schistocytes PT INR APTT Sodium Potassium Chloride Carbon Dioxide Anion Gap BUN Creatinine Estim Creat Clear Calc Estimated GFR Glucose Lactic Acid 3.2 H Calcium Iron TIBC % Saturation Total Bilirubin AST ALT Alkaline Phosphatase Troponin I Total Protein Albumin Urine Color Yellow Urine Appearance Clear Urine pH 5.0 Ur Specific [place] > 1.045 H Urine Protein Negative Urine Glucose (UA) Negative Urine Ketones Trace H Ur Blood (Man) Negative Urine Nitrate Negative Urine Bilirubin Negative Urine Urobilinogen 0.2 Leukocyte Esterase Rfl Negative C. difficile (PCR) Negative Blood Type Antibody Screen Crossmatch 07/25/24 13:49 WBC RBC Hgb 8.1 L Hct 27.3 L MCV MCH MCHC RDW Plt Count MPV Immature Gran % (Auto) Neut % (Auto) Lymph % (Auto) [place] % (Auto) Eos % (Auto) Baso % (Auto) Lymph # (Auto) [place] # (Auto) Eos # (Auto) Baso # (Auto) Abs Immat Gran (auto) Absolute Neuts (auto) Absolute Nucleated RBC Band Neutrophils % Nucleated RBC % Platelet Estimate Anisocytosis Microcytosis Ovalocytes Schistocytes PT INR APTT Sodium Potassium Chloride Carbon Dioxide Anion Gap BUN Creatinine Estim Creat Clear Calc Estimated GFR Glucose Lactic Acid Calcium Iron TIBC % Saturation Total Bilirubin AST ALT Alkaline Phosphatase Troponin I Total Protein Albumin Urine Color Urine Appearance Urine pH Ur Specific [place] Urine Protein Urine Glucose (UA) Urine Ketones Ur Blood (Man) Urine Nitrate Urine Bilirubin Urine Urobilinogen Leukocyte Esterase Rfl C. difficile (PCR) Blood Type Antibody Screen Crossmatch
--- NOTE | 2024-07-25 17:55 | WPDONCCN ---
Assessment and Plan Assessment and plan (1) Acute GI bleeding: Code(s): K92.2 - Gastrointestinal hemorrhage, unspecified Status: Acute (2) Polycythemia: Code(s): D75.1 - Secondary polycythemia Status: Acute Assessment and Plan: Patient with diagnosis of JAK2 mutation positive essential thrombocythemia and polycythemia. He was started on hydroxyurea. Admitted to the hospital with a GI bleed. He developed iron deficiency anemia. Etiology office bleeding could be diverticular bleeding. There is a rare complication of acquired von Willebrand's disease with essential thrombocythemia. I will check ristocetin cofactor activity, factor 8 level and von Willebrand antigen. I will start him on Amicar to stop the bleeding. Will continue to hold hydroxyurea as well as aspirin until his hemodynamically stable and hemoglobin is stabilized. Patient will start iron 65 mg twice a day on discharge. Will transfuse blood on as needed basis. HPI Data of Consult Date/Time: 07/25/24 17:55 Requesting Physician: Sharri Saavedra DO Primary Care Provider: Maurice Mary MD Consult Narrative Narrative: Antonio Dobbs is a 78 year old male polycythemia vera with essential thrombocythemia JAK2 mutation positive was recently started on hydroxyurea 500 mg daily with baby aspirin on June 21, 2024. Patient also had a phlebotomy done on July 06 for elevated hematocrit. He came into the hospital with complain of bloody stool with along with lightheadedness and dizziness. CT angiogram abdomen showed diverticulitis with no indication of active bleeding. GI consultation was ordered. Labs showed hemoglobin dropped to 8.1 with hematocrit of 27.3. Platelet count shot up to 824,000. INR 1.4 with PTT of 31.7. Aspirin and hydroxyurea has been discontinued. He had 1 episode of rectal bleeding today as well. No other new complaints. Review of Systems Review of Systems: Review of system as per HPI otherwise negative [facility] Past Medical History Medical History Rectal bleeding Rib fracture T11 vertebral fracture Essential hypertension Impaired glucose tolerance Collar bone fracture Surgical History Surgical History Hx of repair of dissecting thoracic aortic aneurysm, Gonzalez type B History of knee replacement H/O knee surgery Family History Family History Mother Patient's mother is in good health Father Family history of coronary artery disease Social History Social History Smoking packs per day: 2.75 Smoking cigarettes per day: 55.0 Years smoked: 31 Smoking pack-years: 85.25 Smoking status: Former smoker Tobacco type: cigarettes Second hand tobacco smoke exposure: Yes Smoking end date: 04/27/84 Alcohol intake: never Substance use: never Substance use type: does not use Do You Feel Safe in your Home?: Yes Lack of Transportation: No Lack of Food: Never True Current Housing: I Have Housing Concerned About Future Housing: No Difficulty Paying Gas/Electric Bills: No Difficulty Paying for Meds: No Currently Unemployed: No Education: Trade/Vocational Certificate Difficulty w/ Childcare or Family Care: No Living arrangements: with family Spiritual care concerns: No Meds Home Medications and Allergies Home Medications ?Medication ?Instructions ?Recorded ?Confirmed ?Type cholecalciferol (vitamin D3) 50 50 mcg PO DAILY 06/13/19 07/25/24 History mcg (2,000 unit) capsule Potassium gluconate 1 tab-cap PO DAILY 03/07/22 07/25/24 History omega 2-hlp-iob-fish oil 1,200 mg 1 cap PO BID 03/07/22 07/25/24 History (144 mg-216 mg) capsule (Fish Oil) aspirin 325 mg tablet,delayed 325 mg PO DAILY 09/30/22 07/25/24 History release finasteride 5 mg tablet 5 mg PO DAILY 05/26/23 07/25/24 History docusate sodium 100 mg tablet 300 mg PO DAILY 07/08/23 07/25/24 History (Stool Softener) polyethylene glycol 3350 17 17 g PO DAILY 07/08/23 07/25/24 History gram/dose oral powder (Miralax) melatonin 3 mg tablet 3 mg PO QHS #90 tabs 07/23/23 07/25/24 Rx carvedilol 6.25 mg tablet See Rx Instructions .Route 11/16/23 07/25/24 Rx .COMPLEX #180 tabs simvastatin 40 mg tablet 40 mg PO DAILY #90 tabs 04/12/24 07/25/24 Rx ipratropium bromide 42 mcg (0.06 2 spray intranasal TID PRN allergy 04/15/24 07/25/24 Rx %) nasal spray symptoms #15 mL tamsulosin 0.4 mg capsule See Rx Instructions .Route 04/28/24 07/25/24 Rx .COMPLEX #180 caps linaclotide 290 mcg capsule 290 mcg PO .daily #90 caps 05/02/24 07/25/24 Rx (Linzess) allopurinol 300 mg tablet 300 mg PO DAILY 07/06/24 07/25/24 History hydroxyurea 500 mg capsule (Hydrea) 500 mg PO DAILY 07/06/24 07/25/24 History lisinopril 10 mg tablet 20 mg PO DAILY 07/06/24 07/25/24 History Allergies Allergy/AdvReac Type Severity Reaction Status Date / Time No Known Allergies Allergy Verified 07/25/24 09:45 Vital Signs Vital Signs - 24 hr 07/25/24 03:14 07/25/24 05:03 07/25/24 05:08 Temperature 36.2 C L 36.6 C Pulse Rate 91 86 89 Respiratory Rate 15 20 17 Blood Pressure 110/76 106/56 L 106/56 L Pulse Oximetry 97 97 95 Oxygen Delivery Room Air 07/25/24 05:22 07/25/24 06:23 07/25/24 06:47 Temperature 36.3 C L 36.6 C 36.9 C Pulse Rate 86 90 88 Respiratory Rate 18 18 20 Blood Pressure 118/62 102/56 L 118/51 L Pulse Oximetry 95 95 99 Oxygen Delivery 07/25/24 06:55 07/25/24 08:00 07/25/24 08:00 Temperature 36.7 C Pulse Rate 110 H 95 99 Respiratory Rate 16 Blood Pressure 98/53 L Pulse Oximetry 99 Oxygen Delivery 07/25/24 10:00 07/25/24 11:24 07/25/24 12:00 Temperature 36.6 C Pulse Rate 97 98 95 Respiratory Rate 18 Blood Pressure 94/45 L Pulse Oximetry 98 Oxygen Delivery 07/25/24 14:00 07/25/24 15:50 07/25/24 15:50 Temperature 36.6 C 36.6 C Pulse Rate 93 93 93 Respiratory Rate 20 20 Blood Pressure 130/50 L 130/50 L Pulse Oximetry 100 100 Oxygen Delivery 07/25/24 16:00 07/25/24 16:14 07/25/24 16:14 Temperature 36.7 C 36.6 C Pulse Rate 94 63 92 Respiratory Rate 20 18 Blood Pressure 113/46 L 117/56 L Pulse Oximetry 97 94 Oxygen Delivery 07/25/24 17:17 Temperature 36.6 C Pulse Rate 99 Respiratory Rate 16 Blood Pressure 119/47 L Pulse Oximetry 95 Oxygen Delivery Exam Narrative: Lungs are clear to auscultation bilaterally Cardiovascular regular rate rhythm no murmurs Abdomen soft nontender nondistended Extremities no edema Results Labs 07/25/24 13:49 07/25/24 03:24 Labs: Short CBC 07/25/24 07/25/24 07/25/24 Range/Units 03:24 07:18 13:49 WBC 24.4 H (4.5-10.0) K/mm3 Hgb 8.8 L D 9.3 L 8.1 L (14.0-18.0) g/dL Hct 30.2 L 31.4 L 27.3 L (42.0-52.0) % Plt Count 824 H D (150-375) k/mm3 BMP 07/25/24 03:24 Sodium 137 Potassium 4.1 Chloride 107 Carbon Dioxide 20 L BUN 35 H D Creatinine 1.03 Glucose 187 H Calcium 7.9 L Cardiac Enzymes 07/25/24 07/25/24 Range/Units 04:22 07:18 Troponin I < 0.012 < 0.012 (0.000-0.034) ng/mL Liver Function 07/25/24 Range/Units 03:24 Total Bilirubin 0.8 (0.2-1.3) mg/dL AST 17 (17-59) U/L ALT 14 (6-50) U/L Alkaline Phosphatase 69 (38-126) U/L Albumin 3.0 L (3.5-5.1) g/dL Urine 07/25/24 Range/Units 10:30 Urine Color Yellow (Yellow) Urine Appearance Clear (Clear) Urine pH 5.0 (5.0-9.0) Ur Specific [place] > 1.045 H (1.001-1.035) Urine Protein Negative (Negative) mg/dL Urine Glucose (UA) Negative (Negative) mg/dL
[2024-07-25] MEDS: AMINOCAPROIC ACID INJ 5,000 MG in DEXTROSE 5% IN WATER 250 ML 50 MG IVPB (22:04)
[2024-07-25] MEDS: MELATONIN 3 MG TABLET PO (22:11)
[2024-07-25 22:49] LABS: Hematocrit 29.1 % (42.0-52.0); Hemoglobin 9.2 g/dL (14.0-18.0)
[2024-07-26] VITALS (16 sets, daily range): BP systolic 123–140; BP diastolic 43–58; PULSE 55–86; RESP 14–18; TEMP 36.4–37.1; O2SAT 98–100
[2024-07-26] MEDS: LACTATED RINGERS 1,000 ML 100 ML IV CONT ×3 (01:22→21:17)
[2024-07-26] MEDS: AMINOCAPROIC ACID INJ 5,000 MG in DEXTROSE 5% IN WATER 250 ML 50 MG IVPB ×3 (03:05→15:57)
[2024-07-26 04:28] LABS: Hematocrit 28.8 % (42.0-52.0)
[2024-07-26 04:29] LABS: Hematocrit 29.3 % (42.0-52.0); Hemoglobin 8.9 g/dL (14.0-18.0); Mean Corpuscular HGB Conc 30.4 g/dl (32-36); Mean Corpuscular Hemoglobin 22.1 pg (26-34); Mean Corpuscular Volume 72.7 fl (80-100); Mean Platelet Volume 10.8 fl (7.4-10.4); Platelet Count Result 702 k/mm3 (150-375); Red Blood Count 4.03 M/mm3 (4.6-6.20); White Blood Count 21.5 K/mm3 (4.5-10.0)
[2024-07-26 04:40] LABS: Alanine Aminotransferase 13 U/L (6-50); Albumin Level 2.6 g/dL (3.5-5.1); Alkaline Phosphatase 61 U/L (38-126); Anion Gap 8 mmol/L (4-12); Aspartate Amino Transferase 17 U/L (17-59); Bilirubin,Total 0.7 mg/dL (0.2-1.3); Blood Urea Nitrogen 34 mg/dL (9-20); Calcium 7.7 mg/dL (8.4-10.2); Carbon Dioxide 19 mmol/L (22-30); Chloride 110 mmol/L (98-107); Estimated CRCL calculation 65 ml/min; Estimated Glomerular Filt Rate > 60; Glucose 121 mg/dL (65-110); Potassium 3.5 mmol/L (3.4-5.0); Sodium 137 mmol/L (137-145)
[2024-07-26] MEDS: allopurinoL 300 MG TABLET PO (08:25)
[2024-07-26] MEDS: TAMSULOSIN HCL 0.4 MG CAPSULE PO (08:25)
[2024-07-26] MEDS: CHOLECALCIFEROL 1,000 UNITS TABLET 2000 UNITS PO (08:25)
[2024-07-26] MEDS: FINASTERIDE 5 MG TABLET PO (08:25)
--- NOTE | 2024-07-26 08:31 | P.PNIM_ITS ---
Progress Note: A&P Assessment and Plan (1) Acute GI bleeding: Code(s): K92.2 - Gastrointestinal hemorrhage, unspecified Status: Acute Assessment and Plan: Patient currently receiving treatment outpatient with Hematology for polycythemia recently started on hydroxyurea last colonoscopy year ago did show internal hemorrhoids. * CT angio showed no evidence of acute bleed however did show possible diverticulitis * Hgb 8.8 POA received 1 unit PRBCs improved to 9.3 however 6 hours later dropped hemoglobin to 8.1 * Transfused another unit of PRBCs * H&H q.6 hours * Protonic IV push b.i.d. * Clear liquid diet * GI consulted * Hold aspirin 324 * Likely defer colonoscopy at this time due to active infection with diverticulitis if possible will attempt to stabilize hemoglobin and medical management * Monitor patient's hemodynamics 07/26: * Hgb stable today at 8.9 patient seen by Hematology who started patient on Amicar to stop bleed possibly secondary to diverticular bleed he has also now developed iron deficiency anemia I started him on iron transfusion will hospitalized and he will need continued Iron supplements BID at discharge per hematology * hematology also reported possible rare complication of acquired Von Willebrand's disease and they are checking ristocetin cofactor, factor 8 level, and Von Willebrand's antigen * will continue to hold aspirin and hydroxyurea * transfused PRBCs as needed hgb <7.0 (2) Polycythemia: Code(s): D75.1 - Secondary polycythemia Status: Acute Assessment and Plan: * PLT 824 POA * Patient does phlebotomy O/P * Recently started on hydroxyurea * Hematology consulted 07/26 * SEE ABOVE #1 (3) Sepsis without septic shock: Code(s): A41.9 - Sepsis, unspecified organism Status: Acute Assessment and Plan: Tachycardia, leukocytosis Lactic acidosis and CT evidence of diverticulitis * Lactic 2.1>3.5>3.3 * Blood cultures pending * patient on Rocephin and Flagyl IV * Received fluid resuscitation emergency department * Monitor BP soft at this time could be secondary to anemia 07/26: * Appears more related to patient hypovolemia secondary to blood loss but will continue to treat diverticulitis with IV ABX therapy at this time WBC improving, ABD exam benign and patient tolerating full diet. (4) Iron deficiency anemia: Code(s): D50.9 - Iron deficiency anemia, unspecified Status: Acute Assessment and Plan: HX of iron deficiency anemia * Iron panel 30/283/11% * Last Ferritin 10.30 * Hematology consult in * Iron infusions daily 07/26 * will need discharged on iron supplements b.i.d. and likely outpatient blood transfusions (5) BPH (benign prostatic hyperplasia): Code(s): N40.0 - Benign prostatic hyperplasia without lower urinary tract symptoms Status: Acute Assessment and Plan: * Resume finasteride * Monitor for urinary retention (6) Essential hypertension: Code(s): I10 - Essential (primary) hypertension Status: Acute Assessment and Plan: * BP soft * Carvedilol and lisinopril held at this time * Can resume once BP tolerates (7) Hypotension: Code(s): I95.9 - Hypotension, unspecified Status: Resolved Assessment and Plan: * BP soft 95/45 * Likely secondary to patient's anemia * 2 units PRBCs * IV fluid * Holding patient's carvedilol and lisinopril will resume when BP tolerates * BP per unit protocol RESOLVED (8) Diverticulosis: Code(s): K57.90 - Diverticulosis of intestine, part unspecified, without perforation or abscess without bleeding Status: Acute Assessment and Plan: CT abdomen was showing possible diverticulitis but clinical setting appears to be more diverticulosis with possible diverticular bleed. WBC still elevated but could be inflammatory response patient's abdominal exam benign in tolerating regular diet. * IV Rocephin Flagyl * patient should be able to transition to Augmentin discharge and follow-up with GI at a later time for follow-up colonoscopy Plan Code status: Full code per patient DVT prophylaxis: SCD's Stress ulcer prophylaxis: Protonix 40 BID PT/OT notes: NA Disposition: Patient was admitted to IMU for further evaluation and treatment possible GI bleed, sepsis without septic shock secondary to diverticulitis, and polycythemia GI and Hematology have been consulted for further recommendations. patient will need close monitoring with Hematology after discharge. Time Spent With Patient Time with patient: 15 - 25 minutes Subjective Date/time seen: 07/26/24 08:31 Interval history: Patient is a 78-year-old male who initially presented with possible GI bleed who is receiving treatment for polycythemia vera outpatient currently doing medical management to control bleed hematology and GI consulted. 07/26/2024: Patient with no new complaints reports dizziness has resolved in no for further episodes of blood in stool. abdominal exam benign denied any nausea vomiting and tolerating full diet. Review of Systems Review of Systems: All systems reviewed & are unremarkable except as noted in HPI and below Exam Const: General: comfortable and no acute distress HENMT: Mouth: Yes moist mucous membranes Eyes: General: appearance normal, both eyes and all related structures Pupils: Equal, round and reactive pupils present Neck: Neck: supple and no JVD Resp: Effort & Inspection: normal respiratory effort Auscultation: clear to auscultation bilaterally Cardio: Rate: regular rate and tachycardic GI: Other: Non-tender Skin: General skin exam: no rashes or lesions noted Wounds: no wounds Other: Pale Neuro: Cranial nerves: Yes Equal, round and reactive pupils present Speech: normal speech Motor exam (neuro): 5/5 motor strength present throughout Sensory Exam: normal sensation Extrem: General: normal to inspection Psych: Mental Status: mental status grossly normal Affect: normal affect Objective Data Vital Signs Vital Signs: Vital Signs - 24 hr 07/25/24 10:00 07/25/24 11:24 07/25/24 12:00 Temperature 98 F Pulse Rate 97 98 95 Respiratory Rate 18 Blood Pressure 94/45 L Pulse Oximetry 98 Oxygen Delivery 07/25/24 14:00 07/25/24 15:50 07/25/24 15:50 Temperature 98 F 98 F Pulse Rate 93 93 93 Respiratory Rate 20 20 Blood Pressure 130/50 L 130/50 L Pulse Oximetry 100 100 Oxygen Delivery 07/25/24 16:00 07/25/24 16:14 07/25/24 16:14 Temperature 98.1 F 98 F Pulse Rate 94 63 92 Respiratory Rate 20 18 Blood Pressure 113/46 L 117/56 L Pulse Oximetry 97 94 Oxygen Delivery 07/25/24 17:17 07/25/24 18:00 07/25/24 18:18 Temperature 97.9 F 97.8 F Pulse Rate 99 95 97 Respiratory Rate 16 17 Blood Pressure 119/47 L 113/44 L Pulse Oximetry 95 100 Oxygen Delivery 07/25/24 18:23 07/25/24 18:23 07/25/24 19:37 Temperature 97.8 F 98.3 F 98.7 F Pulse Rate 97 96 100 Respiratory Rate 17 16 18 Blood Pressure 113/44 L 133/52 L 143/53 H Pulse Oximetry 100 99 100 Oxygen Delivery 07/25/24 20:00 07/25/24 20:00 07/25/24 20:00 Temperature 98.1 F Pulse Rate 92 95 Respiratory Rate 20 Blood Pressure 149/55 H Pulse Oximetry 100 Oxygen Delivery Room Air 07/25/24 20:15 07/25/24 20:37 07/25/24 21:07 Temperature 98.2 F 98.0 F Pulse Rate 88 80 Respiratory Rate 20 18 Blood Pressure 123/47 L 138/55 L Pulse Oximetry 99 99 99 Oxygen Delivery Room Air 07/25/24 22:00 07/25/24 23:11 07/26/24 00:00 Temperature 98.4 F Pulse Rate 78 77 Respiratory Rate 20 Blood Pressure 116/40 L Pulse Oximetry 99 Oxygen Delivery Room Air 07/26/24 00:00 07/26/24 02:00 07/26/24 03:17 Temperature 98.2 F Pulse Rate 67 86 71 Respiratory Rate 18 Blood Pressure 125/43 L Pulse Oximetry 99 Oxygen Delivery 07/26/24 04:00 07/26/24 04:00 07/26/24 06:00 Temperature Pulse Rate 58 L 55 L Respiratory Rate Blood Pressure Pulse Oximetry Oxygen Delivery Room Air 07/26/24 08:06 Temperature 98 F Pulse Rate 73 Respiratory Rate 14 Blood Pressure 137/48 L Pulse Oximetry 99 Oxygen Delivery Intake/Output Intake/Output: Intake & Output 07/23/24 07/24/24 07/25/24 07/26/24 23:59 23:59 23:59 23:59 Intake Total 2530 2160.8 Output Total 1375 200 Balance 1155 1960.8 Meds/Results Medications: Active Medications Generic Name Dose Route Start Last Admin Trade Name Freq PRN Reason Stop Dose Admin Acetaminophen 650 mg 07/25/24 09:40 Acetaminophen 325 Mg Tablet PO Q4H PRN Mild Pain (1-3) or Fever Hydrocodone Bitart/Acetaminophen 1 tab 07/25/24 09:40 Hydrocodone/Acetaminophen (*Crx) 5-325 Mg Tablet PO Q4H PRN Moderate Pain (4-6) Allopurinol 300 mg 07/26/24 09:00 07/26/24 08:25 Allopurinol 300 Mg Tablet PO 300 mg DAILY GO Administration Finasteride 5 mg 07/26/24 09:00 07/26/24 08:25 Finasteride 5 Mg Tablet PO 5 mg DAILY GO Administration Lactated Ringer's 1,000 mls @ 100 mls/hr 07/25/24 09:45 07/26/24 01:22 Lr - Lactated Ringers Iv IV CONT 100 mls/hr .Q10H GO Administration Iron Sucrose 100 mg/ Sodium 55 mls @ 220 mls/hr 07/26/24 09:00 Chloride IVPB DAILY GO Aminocaproic Acid 5,000 mg/ 270 mls @ 50 mls/hr 07/25/24 19:00 07/26/24 03:05 Dextrose IVPB 07/26/24 18:59 50 mls/hr Q5H GO Administration Ipratropium [place] 2 spray 07/25/24 09:36 Ipratropium Nasal [place] 0.06% 15 Ml Bottle NASAL TID PRN allergy symptoms Melatonin 3 mg 07/25/24 21:00 07/25/24 22:11 Melatonin 3 Mg Tablet PO 3 mg QHS GO Administration Ondansetron HCl 4 mg 07/25/24 09:40 Ondansetron Inj 4 Mg/2 Ml Vial IV PUSH Q6H PRN Nausea And Vomiting Simvastatin 40 mg 07/26/24 09:00 07/26/24 08:27 Simvastatin 20 Mg Tablet PO Not Given DAILY GO Tamsulosin HCl 0.4 mg 07/26/24 09:00 07/26/24 08:25 Tamsulosin Hcl 0.4 Mg Capsule PO 0.4 mg DAILY GO Administration Vitamin D 2,000 units 07/25/24 09:00 07/26/24 08:25 Cholecalciferol 1,000 Units Tablet PO 2,000 units DAILY GO Administration Radiology Results: ITS Impressions Abdomen/Pelvis CTA 07/25/24 05:54 Impression: No CT angiographic evidence for active GI bleeding. Possible mild acute diverticulitis of the distal descending colon. Cholelithiasis. Constipation. Head CT 07/25/24 05:54 Impression: No significant abnormality seen. Labs Labs: Laboratory Results - last 24 hr 07/25/24 07/25/24 07/25/24 03:24 07:18 10:30 WBC RBC Hgb Hct MCV MCH MCHC RDW Plt Count MPV Sodium Potassium Chloride Carbon Dioxide Anion Gap BUN Creatinine Estim Creat Clear Calc Estimated GFR Glucose Lactic Acid Calcium Iron 30 L TIBC 283 % Saturation 11 L Total Bilirubin AST ALT Alkaline Phosphatase Total Protein Albumin Urine Color Yellow Urine Appearance Clear Urine pH 5.0 Ur Specific [place] > 1.045 H Urine Protein Negative Urine Glucose (UA) Negative Urine Ketones Trace H Ur Blood (Man) Negative Urine Nitrate Negative Urine Bilirubin Negative Urine Urobilinogen 0.2 Leukocyte Esterase Rfl Negative C. difficile (PCR) Blood Type O Positive Antibody Screen Negative Crossmatch See Detail 07/25/24 07/25/24 07/25/24 11:05 12:27 13:49 WBC RBC Hgb 8.1 L Hct 27.3 L MCV MCH MCHC RDW Plt Count MPV Sodium Potassium Chloride Carbon Dioxide Anion Gap BUN Creatinine Estim Creat Clear Calc Estimated GFR Glucose Lactic Acid 3.2 H Calcium Iron TIBC % Saturation Total Bilirubin AST ALT Alkaline Phosphatase Total Protein Albumin Urine Color Urine Appearance Urine pH Ur Specific [place] Urine Protein Urine Glucose (UA) Urine Ketones Ur Blood (Man) Urine Nitrate Urine Bilirubin Urine Urobilinogen Leukocyte Esterase Rfl C. difficile (PCR) Negative Blood Type Antibody Screen Crossmatch 07/25/24 07/26/24 07/26/24 22:44 03:52 03:52 WBC 21.5 H RBC 4.03 L Hgb 9.2 L 9.0 L 8.9 L Hct 29.1 L 28.8 L MCV MCH MCHC RDW Plt Count MPV Sodium Potassium Chloride Carbon Dioxide Anion Gap BUN Creatinine Estim Creat Clear Calc Estimated GFR Glucose Lactic Acid Calcium Iron TIBC % Saturation Total Bilirubin AST ALT Alkaline Phosphatase Total Protein Albumin Urine Color Urine Appearance Urine pH Ur Specific [place] Urine Protein Urine Glucose (UA) Urine Ketones Ur Blood (Man) Urine Nitrate Urine Bilirubin Urine Urobilinogen Leukocyte Esterase Rfl C. difficile (PCR) Blood Type Antibody Screen Crossmatch 07/26/24 03:52 WBC RBC Hgb Hct 29.3 L MCV 72.7 L D MCH 22.1 L D MCHC 30.4 L RDW 25.0 H Plt Count 702 H MPV 10.8 H Sodium 137 Potassium 3.5 Chloride 110 H Carbon Dioxide 19 L Anion Gap 8 BUN 34 H Creatinine 1.02 Estim Creat Clear Calc 65 Estimated GFR > 60 Glucose 121 H Lactic Acid Calcium 7.7 L Iron TIBC % Saturation Total Bilirubin 0.7 AST 17 ALT 13 Alkaline Phosphatase 61 Total Protein 5.0 L Albumin 2.6 L Urine Color Urine Appearance Urine pH Ur Specific [place] Urine Protein Urine Glucose (UA) Urine Ketones Ur Blood (Man) Urine Nitrate Urine Bilirubin Urine Urobilinogen Leukocyte Esterase Rfl C. difficile (PCR) Blood Type Antibody Screen Crossmatch Quality VTE Prophylaxis VTE prophylaxis: mechanical ordered -Patient's previous records reviewed on admission -ER notes reviewed in detail on admission -discussed all findings and current treatment plan with patient/Family/POA -Consultations reviewed for recommendations -Patient's disposition for safe discharge discussed with manager case management Dictation performed by [employer] direct speech recognition software, therefore golf range attendant variants and typographical errors may occur. Hospitalist MIPS Advance Care Plan I have confirmed that the patient's Advanced Care Plan is present, code status is documented, or surrogate decision maker is listed in patient medical record.: Yes Medication Reconciliation I have utilized all available resources to obtain, update and review the patients current medications (includes all prescriptions, OTC, herbals, cannabis, and nutritional supplements).: Yes The patient is not eligible for med reconciliation; the patient is in a emergent medical situation where delaying treatment would jeopardize the patients health.: No
[2024-07-26] MEDS: IRON SUCROSE COMPLEX 100 MG in SODIUM CHLORIDE 0.9% IV 50 ML 220 MG IVPB (08:59)
--- NOTE | 2024-07-26 12:59 | P.PNGI_ITS ---
Progress Note: A&P Assessment and Plan (1) Acute GI bleeding: Code(s): K92.2 - Gastrointestinal hemorrhage, unspecified Status: Acute Assessment and Plan: This patient presented with self-limited lower gastrointestinal bleeding, which is most likely attributable to diverticulosis. As documented in yesterday's note, the CT scan findings suggestive of possible diverticulitis are not consistent with the clinical picture, which is characterized by isolated GI bleeding without features of acute diverticulitis requiring antibiotic therapy. Therefore, discharge is appropriate. Outpatient hematology follow-up for polycythemia vera is recommended. Iron therapy, as agreed upon by the hospitalist and hematology, will be continued post-discharge. Subjective Date/time seen: 07/26/24 12:59 Interval history: Patient had normal brown stool this morning. No further bleeding, hemodyna mically stable, hemoglobin and hematocrit also stable. Exam Narrative: Unchanged from y Objective Data Vital Signs Vital Signs: Vital Signs - 24 hr 07/25/24 14:00 07/25/24 15:50 07/25/24 15:50 Temperature 98 F 98 F Pulse Rate 93 93 93 Respiratory Rate 20 20 Blood Pressure 130/50 L 130/50 L Pulse Oximetry 100 100 Oxygen Delivery 07/25/24 16:00 07/25/24 16:14 07/25/24 16:14 Temperature 98.1 F 98 F Pulse Rate 94 63 92 Respiratory Rate 20 18 Blood Pressure 113/46 L 117/56 L Pulse Oximetry 97 94 Oxygen Delivery 07/25/24 17:17 07/25/24 18:00 07/25/24 18:18 Temperature 97.9 F 97.8 F Pulse Rate 99 95 97 Respiratory Rate 16 17 Blood Pressure 119/47 L 113/44 L Pulse Oximetry 95 100 Oxygen Delivery 07/25/24 18:23 07/25/24 18:23 07/25/24 19:37 Temperature 97.8 F 98.3 F 98.7 F Pulse Rate 97 96 100 Respiratory Rate 17 16 18 Blood Pressure 113/44 L 133/52 L 143/53 H Pulse Oximetry 100 99 100 Oxygen Delivery 07/25/24 20:00 07/25/24 20:00 07/25/24 20:00 Temperature 98.1 F Pulse Rate 92 95 Respiratory Rate 20 Blood Pressure 149/55 H Pulse Oximetry 100 Oxygen Delivery Room Air 07/25/24 20:15 07/25/24 20:37 07/25/24 21:07 Temperature 98.2 F 98.0 F Pulse Rate 88 80 Respiratory Rate 20 18 Blood Pressure 123/47 L 138/55 L Pulse Oximetry 99 99 99 Oxygen Delivery Room Air 07/25/24 22:00 07/25/24 23:11 07/26/24 00:00 Temperature 98.4 F Pulse Rate 78 77 Respiratory Rate 20 Blood Pressure 116/40 L Pulse Oximetry 99 Oxygen Delivery Room Air 07/26/24 00:00 07/26/24 02:00 07/26/24 03:17 Temperature 98.2 F Pulse Rate 67 86 71 Respiratory Rate 18 Blood Pressure 125/43 L Pulse Oximetry 99 Oxygen Delivery 07/26/24 04:00 07/26/24 04:00 07/26/24 06:00 Temperature Pulse Rate 58 L 55 L Respiratory Rate Blood Pressure Pulse Oximetry Oxygen Delivery Room Air 07/26/24 08:00 07/26/24 08:06 07/26/24 10:00 Temperature 98 F Pulse Rate 79 73 77 Respiratory Rate 14 Blood Pressure 137/48 L Pulse Oximetry 99 Oxygen Delivery 07/26/24 11:15 07/26/24 12:00 Temperature 97.6 F Pulse Rate 68 74 Respiratory Rate 16 Blood Pressure 123/57 L Pulse Oximetry 100 Oxygen Delivery Intake/Output Intake/Output: Intake & Output 07/23/24 07/24/24 07/25/24 07/26/24 23:59 23:59 23:59 23:59 Intake Total 2530 3485.8 Output Total 1375 200 Balance 1155 3285.8 Meds/Results Medications: Active Medications Generic Name Dose Route Start Last Admin Trade Name Freq PRN Reason Stop Dose Admin Acetaminophen 650 mg 07/25/24 09:40 Acetaminophen 325 Mg Tablet PO Q4H PRN Mild Pain (1-3) or Fever Hydrocodone Bitart/Acetaminophen 1 tab 07/25/24 09:40 Hydrocodone/Acetaminophen (*Crx) 5-325 Mg Tablet PO Q4H PRN Moderate Pain (4-6) Allopurinol 300 mg 07/26/24 09:00 07/26/24 08:25 Allopurinol 300 Mg Tablet PO 300 mg DAILY GO Administration Finasteride 5 mg 07/26/24 09:00 07/26/24 08:25 Finasteride 5 Mg Tablet PO 5 mg DAILY GO Administration Lactated Ringer's 1,000 mls @ 100 mls/hr 07/25/24 09:45 07/26/24 11:22 Lr - Lactated Ringers Iv IV CONT 100 mls/hr .Q10H GO Administration Iron Sucrose 100 mg/ Sodium 55 mls @ 220 mls/hr 07/26/24 09:00 07/26/24 09:14 Chloride IVPB Infused DAILY GO Infusion Aminocaproic Acid 5,000 mg/ 270 mls @ 50 mls/hr 07/25/24 19:00 07/26/24 09:27 Dextrose IVPB 07/26/24 18:59 50 mls/hr Q5H GO Administration Ipratropium [place] 2 spray 07/25/24 09:36 Ipratropium Nasal [place] 0.06% 15 Ml Bottle NASAL TID PRN allergy symptoms Melatonin 3 mg 07/25/24 21:00 07/25/24 22:11 Melatonin 3 Mg Tablet PO 3 mg QHS GO Administration Ondansetron HCl 4 mg 07/25/24 09:40 Ondansetron Inj 4 Mg/2 Ml Vial IV PUSH Q6H PRN Nausea And Vomiting Simvastatin 40 mg 07/26/24 21:00 Simvastatin 20 Mg Tablet PO HS [facility] Tamsulosin HCl 0.4 mg 07/26/24 09:00 07/26/24 08:25 Tamsulosin Hcl 0.4 Mg Capsule PO 0.4 mg DAILY GO Administration Vitamin D 2,000 units 07/25/24 09:00 07/26/24 08:25 Cholecalciferol 1,000 Units Tablet PO 2,000 units DAILY GO Administration Radiology Results: ITS Impressions Abdomen/Pelvis CTA 07/25/24 05:54 Impression: No CT angiographic evidence for active GI bleeding. Possible mild acute diverticulitis of the distal descending colon. Cholelithiasis. Constipation. Head CT 07/25/24 05:54 Impression: No significant abnormality seen. Labs Labs: Laboratory Results - last 24 hr 07/25/24 07/25/24 07/25/24 03:24 13:49 22:44 WBC RBC Hgb 8.1 L 9.2 L Hct 27.3 L 29.1 L MCV MCH MCHC RDW Plt Count MPV Sodium Potassium Chloride Carbon Dioxide Anion Gap BUN Creatinine Estim Creat Clear Calc Estimated GFR Glucose Calcium Total Bilirubin AST ALT Alkaline Phosphatase Total Protein Albumin Blood Type O Positive Antibody Screen Negative Crossmatch See Detail 07/26/24 07/26/24 07/26/24 03:52 03:52 03:52 WBC 21.5 H RBC 4.03 L Hgb 9.0 L 8.9 L Hct 28.8 L 29.3 L MCV 72.7 L D MCH 22.1 L D MCHC 30.4 L RDW 25.0 H Plt Count 702 H MPV 10.8 H Sodium 137 Potassium 3.5 Chloride 110 H Carbon Dioxide 19 L Anion Gap 8 BUN 34 H Creatinine 1.02 Estim Creat Clear Calc 65 Estimated GFR > 60 Glucose 121 H Calcium 7.7 L Total Bilirubin 0.7 AST 17 ALT 13 Alkaline Phosphatase 61 Total Protein 5.0 L Albumin 2.6 L Blood Type Antibody Screen Crossmatch
--- NOTE | 2024-07-26 15:45 | PC.NURSE ---
On 07/26/24, the student, [Judith Norwood ], provided care and completed [facility] documentation on this patient. I have reviewed the student's documentation and agree with the findings.
[2024-07-26] MEDS: MELATONIN 3 MG TABLET PO (20:05)
[2024-07-26] MEDS: SIMVASTATIN 20 MG TABLET 40 MG PO (20:05)
[2024-07-27] VITALS (11 sets, daily range): BP systolic 125–159; BP diastolic 47–57; PULSE 58–89; RESP 18–20; TEMP 36.6–36.9; O2SAT 97–100
[2024-07-27 04:51] LABS: Hematocrit 30.6 % (42.0-52.0); Hemoglobin 9.1 g/dL (14.0-18.0); Mean Corpuscular HGB Conc 29.7 g/dl (32-36); Mean Corpuscular Volume 73.9 fl (80-100); Mean Platelet Volume 10.7 fl (7.4-10.4); Platelet Count Result 783 k/mm3 (150-375); Red Blood Count 4.14 M/mm3 (4.6-6.20); Red Cell Distribution Width 26.2 % (11.5-14.5)
[2024-07-27 04:57] LABS: Potassium 3.4 mmol/L (3.4-5.0)
[2024-07-27 05:18] LABS: Alanine Aminotransferase 14 U/L (6-50); Alkaline Phosphatase 73 U/L (38-126); Anion Gap 11 mmol/L (4-12); Aspartate Amino Transferase 24 U/L (17-59); Bilirubin,Total 0.4 mg/dL (0.2-1.3); Blood Urea Nitrogen 20 mg/dL (9-20); Carbon Dioxide 19 mmol/L (22-30); Chloride 109 mmol/L (98-107); Estimated CRCL calculation 79 ml/min; Estimated Glomerular Filt Rate > 60; Glucose 109 mg/dL (65-110); Sodium 139 mmol/L (137-145)
[2024-07-27] MEDS: LACTATED RINGERS 1,000 ML 100 ML IV CONT (07:32)
[2024-07-27] MEDS: allopurinoL 300 MG TABLET PO (08:40)
[2024-07-27] MEDS: IRON SUCROSE COMPLEX 100 MG in SODIUM CHLORIDE 0.9% IV 50 ML 220 MG IVPB (08:40)
[2024-07-27] MEDS: CHOLECALCIFEROL 1,000 UNITS TABLET 2000 UNITS PO (08:41)
[2024-07-27] MEDS: FINASTERIDE 5 MG TABLET PO (08:42)
[2024-07-27] MEDS: TAMSULOSIN HCL 0.4 MG CAPSULE PO (08:42)
--- NOTE | 2024-07-27 14:37 | P.DS_ITS ---
DS: Admitting Diagnosis Discharge Date 07/27/24 Admitting Diagnosis GI bleeding DS: Discharge Diagnosis Discharge Diagnosis (1) Acute GI bleeding: Code(s): K92.2 - Gastrointestinal hemorrhage, unspecified Status: Acute Assessment and Plan: Patient currently receiving treatment outpatient with Hematology for polycythemia recently started on hydroxyurea last colonoscopy year ago did show internal hemorrhoids. * CT angio showed no evidence of acute bleed however did show possible divert iculitis * Hgb 8.8 POA received 1 unit PRBCs improved to 9.3 however 6 hours later dropped hemoglobin to 8.1 * Transfused another unit of PRBCs * H&H q.6 hours * Protonic IV push b.i.d. * Clear liquid diet * GI consulted * Hold aspirin 324 * Likely defer colonoscopy at this time due to active infection with diverticulitis if possible will attempt to stabilize hemoglobin and medical management * Monitor patient's hemodynamics 07/26: * Hgb stable today at 8.9 patient seen by Hematology who started patient on Amicar to stop bleed possibly secondary to diverticular bleed he has also now developed iron deficiency anemia I started him on iron transfusion will hospitalized and he will need continued Iron supplements BID at discharge per hematology * hematology also reported possible rare complication of acquired Von Willebrand's disease and they are checking ristocetin cofactor, factor 8 level, and Von Willebrand's antigen * will continue to hold aspirin and hydroxyurea * transfused PRBCs as needed hgb <7.0 * 07/27/24 * Patient was seen and examined at bedside. He is feeling fine. Denies any chest pain, shortness of breath, nausea vomiting. No GI bleeding. Hemoglobin 9.1, stable * GI team on board. (2) Polycythemia: Code(s): D75.1 - Secondary polycythemia Status: Acute Assessment and Plan: * PLT 824 POA * Patient does phlebotomy O/P * Recently started on hydroxyurea * Hematology consulted 07/26 * SEE ABOVE #1 (3) Sepsis without septic shock: Code(s): A41.9 - Sepsis, unspecified organism Status: Acute Assessment and Plan: Tachycardia, leukocytosis Lactic acidosis and CT evidence of diverticulitis * Lactic 2.1>3.5>3.3 * Blood cultures pending * patient on Rocephin and Flagyl IV * Received fluid resuscitation emergency department * Monitor BP soft at this time could be secondary to anemia 07/27: * Improving L (4) Iron deficiency anemia: Code(s): D50.9 - Iron deficiency anemia, unspecified Status: Acute Assessment and Plan: HX of iron deficiency anemia * Iron panel 30/283/11% * Last Ferritin 10.30 * Hematology consult in * Iron infusions daily 07/26 * will need discharged on iron supplements b.i.d. and likely outpatient blood transfusions (5) BPH (benign prostatic hyperplasia): Code(s): N40.0 - Benign prostatic hyperplasia without lower urinary tract symptoms Status: Acute Assessment and Plan: * Resume finasteride * Monitor for urinary retention (6) Essential hypertension: Code(s): I10 - Essential (primary) hypertension Status: Acute Assessment and Plan: * BP soft * Carvedilol and lisinopril held at this time * Can resume once BP tolerates (7) Hypotension: Code(s): I95.9 - Hypotension, unspecified Status: Resolved Assessment and Plan: * BP soft 95/45 * Likely secondary to patient's anemia * 2 units PRBCs * IV fluid * Holding patient's carvedilol and lisinopril will resume when BP tolerates * BP per unit protocol RESOLVED (8) Diverticulosis: Code(s): K57.90 - Diverticulosis of intestine, part unspecified, without perforation or abscess without bleeding Status: Acute Assessment and Plan: CT abdomen was showing possible diverticulitis but clinical setting appears to be more diverticulosis with possible diverticular bleed. WBC still elevated but could be inflammatory response patient's abdominal exam benign in tolerating regular diet. * Discharged on augmentin, and follow-up with GI at a later time for follow-up colonoscopy Plan Code status: Full code per patient DVT prophylaxis: SCD's Stress ulcer prophylaxis: Protonix 40 BID PT/OT notes: NA DS: Summary Hospital Course Reason for hospitalization: Patient with history of polycythemia vera recently on hydroxyurea presented with lower GI bleeding CT concerning for diverticulitis GI team was consulted patient received 2 units of blood. Started on Rocephin and Flagyl. Hematology on board hydroxyurea was stopped patient received Amicar. Today patient is feeling better. No more bleeding. Hb Stable. We discharged patient home Hospital Course: as above Status at Discharge Cognitive/behavioral status at discharge: improving Time Spent with Patient Time attestation: Total time spent providing and/or coordinating discharge services: Time spent: Greater than 30 minutes Exam Const: General: comfortable and no acute distress HENMT: Mouth: Yes moist mucous membranes Eyes: General: appearance normal, both eyes and all related structures Pupils: Equal, round and reactive pupils present Neck: Neck: supple and no JVD Resp: Effort & Inspection: normal respiratory effort Auscultation: clear to auscultation bilaterally Cardio: Rate: regular rate and tachycardic GI: Other: Non-tender Skin: General skin exam: no rashes or lesions noted Wounds: no wounds Other: Pale Neuro: Cranial nerves: Yes Equal, round and reactive pupils present Speech: normal speech Motor exam (neuro): 5/5 motor strength present throughout Sensory Exam: normal sensation Extrem: General: normal to inspection Psych: Mental Status: mental status grossly normal Affect: normal affect DS: Data Data Completed and Pending Labs on day of discharge: Labs from last 24 hours 07/27/24 03:50 WBC 20.0 H RBC 4.14 L Hgb 9.1 L Hct 30.6 L MCV 73.9 L MCH 22.0 L MCHC 29.7 L RDW 26.2 H Plt Count 783 H MPV 10.7 H Sodium 139 Potassium 3.4 Chloride 109 H Carbon Dioxide 19 L Anion Gap 11 BUN 20 D Creatinine 0.85 Estim Creat Clear Calc 79 Estimated GFR > 60 Glucose 109 Calcium 8.0 L Total Bilirubin 0.4 AST 24 ALT 14 Alkaline Phosphatase 73 Total Protein 5.0 L Albumin 3.0 L Preliminary micro results at discharge 07/25/24 12:27 Blood Culture - Preliminary Blood 07/25/24 12:27 Blood Culture - Preliminary Blood Discharge Plan Discharge Attending physician on discharge: Leah Cordoba Consulting providers: Veena Edouard; Petar Dong Discharging Clinician: Leah Cordoba Patient Disposition: Home, Self-Care Activity: may drive after 2 weeks Diet: heart healthy Patient Instructions: Antibiotic Form Patient Language: Jordanian Stand Alone Forms: General Discharge Information Follow-up/Referrals: Petar Dong MD [Physician] - Call for Appointment Maurice Mary MD [Primary Care Provider] - 2 Weeks Discharge Medications: New ferrous sulfate [FeroSul] 325 mg (65 mg iron) tablet 325 mg PO BID Qty: 60 0RF amoxicillin-pot clavulanate [Augmentin] 500-125 mg tablet 1 tablet PO Q12H Qty: 14 0RF Continued lisinopril 10 mg tablet 20 mg PO DAILY aspirin 325 mg tablet,delayed release (DR/EC) 325 mg PO DAILY finasteride 5 mg tablet 5 mg PO DAILY Linzess 290 mcg capsule 290 mcg PO .daily Qty: 90 4RF cholecalciferol (vitamin D3) 50 mcg (2,000 unit) capsule 50 mcg PO DAILY polyethylene glycol 3350 [Miralax] 17 gram/dose Powder 17 g PO DAILY docusate sodium [Stool Softener] 100 mg Tablet 300 mg PO DAILY simvastatin 40 mg tablet 40 mg PO HS melatonin 3 mg tablet 3 mg PO QHS Qty: 90 1RF carvedilol 6.25 mg tablet See Rx Instructions .ROUTE .COMPLEX Qty: 180 1RF Dose Instruction: TAKE 1 TABLET BY MOUTH EVERY 12 HOURS WITH FOOD OR MEAL Patient Comments: . Rx Instructions: TAKE 1 TABLET BY MOUTH EVERY 12 HOURS WITH FOOD OR MEAL ipratropium bromide 42 mcg (0.06 %) spray,non-aerosol 2 spray intranasal TID PRN (Reason: allergy symptoms) Qty: 15 5RF Rx Instructions: administer into each nostril tamsulosin 0.4 mg capsule See Rx Instructions .ROUTE .COMPLEX Qty: 180 1RF Dose Instruction: TAKE 1 CAPSULE BY MOUTH EVERY MORNING Rx Instructions: TAKE 2 CAPSULE BY MOUTH EVERY MORNING omega 2-piu-qug-fish oil [Fish Oil] 1,200 (144-216) mg Capsule 1 cap PO BID Potassium gluconate 2.5 mEq tablet 1 tab-cap PO DAILY Patient Comments: 595 mg? Rx Instructions: Take by mouth daily as directed Held hydroxyurea [Hydrea] 500 mg capsule 500 mg PO DAILY Hold Instructions: Resume on 07/27/24. follow with Hematology/oncology allopurinol 300 mg tablet 300 mg PO DAILY Hold Instructions: Resume on 08/04/24. resume after visit with Dr. Dong Date of admission: 07/25/24 05:55 Primary Care Provider: Maurice Mary Admitting Provider: Sharri Saavedra Attending physician on admission: Sharri Saavedra Condition: Stable Quality VTE Prophylaxis VTE prophylaxis: mechanical ordered
== END 2024-07-27 14:14 | disposition home or self-care (01) | DRG 871 ==
LOC: ANHED 05:54 → ANHIMU 06:13
PROVIDERS: Internal Medicine Hematology & Oncology; Nurse Practitioner Family; Admitting Provider Internal Medicine; Emergency Provider Emergency Medicine; PCP Family Medicine; Visit Provider Internal Medicine
DX: A41.9 Sepsis, unspecified organism (principal); K57.33 Diverticulitis of large intestine without perforation or abscess with bleeding; D69.3 Immune thrombocytopenic purpura; D50.9 Iron deficiency anemia, unspecified; E86.1 Hypovolemia; N40.0 Benign prostatic hyperplasia without lower urinary tract symptoms; I10 Essential (primary) hypertension; D45 Polycythemia vera; Z96.659 Presence of unspecified artificial knee joint; Z87.891 Personal history of nicotine dependence
CPT/HCPCS: 36415; 36430; 70450; 74174; 80053; 81003; 83540; 83550; 83605; 84484; 85014; 85018; 85025; 85027; 85240; 85246; 85610; 85730; 86850; 86900; 86901; 86923; 87040; 87045; 87427; 87449; 87493; 93005; 96360; 96361; 99285; A9270; J0696; J1756; J1836; J2470; J7030; J7050; J7060; J7120; P9016; Q9967

== ENCOUNTER 2024-08-02 14:14 | Outpatient (CLI) | payer MEDICARE, OTHER, SELFPAY ==
--- NOTE | ~2024-08-02 | US_ITS ---
LEFT UPPER EXTREMITY VENOUS ULTRASOUND Ordering provider: Geraldine Carrillo APRN History: . - Other specified soft tissue disorders . Comparison: None. FINDINGS: --JUGULAR: Patent and free of thrombus. Normal compressibility, phasic flow and augmentation. --SUBCLAVIAN: Patent and free of thrombus. Normal compressibility, phasic flow and augmentation. --AXILLARY: Patent and free of thrombus. Normal compressibility, phasic flow and augmentation. --BRACHIAL: Patent and free of thrombus. Normal compressibility, phasic flow and augmentation. --CEPHALIC: Thrombosed. --BASILIC: Patent and free of thrombus. Normal compressibility, phasic flow and augmentation. --RADIAL: Patent and free of thrombus. Normal compressibility, phasic flow and augmentation. --ULNAR: Patent and free of thrombus. Normal compressibility, phasic flow and augmentation. IMPRESSION: Negative left upper extremity venous US. No deep vein thrombosis. RIGHT UPPER EXTREMITY VENOUS ULTRASOUND Ordering provider: Geraldine Carrillo APRN History: . - Other specified soft tissue disorders . Comparison: None. FINDINGS: --JUGULAR: Patent and free of thrombus. Normal compressibility, phasic flow and augmentation. --SUBCLAVIAN: Patent and free of thrombus. Normal compressibility, phasic flow and augmentation. --AXILLARY: Patent and free of thrombus. Normal compressibility, phasic flow and augmentation. --BRACHIAL: Patent and free of thrombus. Normal compressibility, phasic flow and augmentation. --CEPHALIC: Thrombosed. --BASILIC: Patent and free of thrombus. Normal compressibility, phasic flow and augmentation. --RADIAL: Patent and free of thrombus. Normal compressibility, phasic flow and augmentation. --ULNAR: Patent and free of thrombus. Normal compressibility, phasic flow and augmentation. IMPRESSION: THROMBOSED BOTH CEPHALIC VEINS. OTHER VEINS ARE UNREMARKABLE. Reviewed, dictated and finalized at location A. IMPRESSION: Negative left upper extremity venous US. No deep vein thrombosis. RIGHT UPPER EXTREMITY VENOUS ULTRASOUND Ordering provider: Geraldine Carrillo APRN History: . M79.89 - Other specified soft tissue disorders . Comparison: None. FINDINGS: --JUGULAR: Patent and free of thrombus. Normal compressibility, phasic flow and augmentation. --SUBCLAVIAN: Patent and free of thrombus. Normal compressibility, phasic flow and augmentation. --AXILLARY: Patent and free of thrombus. Normal compressibility, phasic flow an d augmentation. --BRACHIAL: Patent and free of thrombus. Normal compressibility, phasic flow a nd augmentation. --CEPHALIC: Thrombosed. --BASILIC: Patent and free of thrombus. Normal compressibility, phasic flow an d augmentation. --RADIAL: Patent and free of thrombus. Normal compressibility, phasic flow and augmentation. --ULNAR: Patent and free of thrombus. Normal compressibility, phasic flow and augmentation.
--- NOTE | ~2024-08-02 | US_ITS ---
LEFT UPPER EXTREMITY VENOUS ULTRASOUND Ordering provider: Geraldine Carrillo APRN History: . - Other specified soft tissue disorders . Comparison: None. FINDINGS: --JUGULAR: Patent and free of thrombus. Normal compressibility, phasic flow and augmentation. --SUBCLAVIAN: Patent and free of thrombus. Normal compressibility, phasic flow and augmentation. --AXILLARY: Patent and free of thrombus. Normal compressibility, phasic flow and augmentation. --BRACHIAL: Patent and free of thrombus. Normal compressibility, phasic flow and augmentation. --CEPHALIC: Thrombosed. --BASILIC: Patent and free of thrombus. Normal compressibility, phasic flow and augmentation. --RADIAL: Patent and free of thrombus. Normal compressibility, phasic flow and augmentation. --ULNAR: Patent and free of thrombus. Normal compressibility, phasic flow and augmentation. IMPRESSION: Negative left upper extremity venous US. No deep vein thrombosis. RIGHT UPPER EXTREMITY VENOUS ULTRASOUND Ordering provider: Geraldine Carrillo APRN History: . - Other specified soft tissue disorders . Comparison: None. FINDINGS: --JUGULAR: Patent and free of thrombus. Normal compressibility, phasic flow and augmentation. --SUBCLAVIAN: Patent and free of thrombus. Normal compressibility, phasic flow and augmentation. --AXILLARY: Patent and free of thrombus. Normal compressibility, phasic flow and augmentation. --BRACHIAL: Patent and free of thrombus. Normal compressibility, phasic flow and augmentation. --CEPHALIC: Thrombosed. --BASILIC: Patent and free of thrombus. Normal compressibility, phasic flow and augmentation. --RADIAL: Patent and free of thrombus. Normal compressibility, phasic flow and augmentation. --ULNAR: Patent and free of thrombus. Normal compressibility, phasic flow and augmentation. IMPRESSION: THROMBOSED BOTH CEPHALIC VEINS. OTHER VEINS ARE UNREMARKABLE. Reviewed, dictated and finalized at location A. IMPRESSION: Negative left upper extremity venous US. No deep vein thrombosis. RIGHT UPPER EXTREMITY VENOUS ULTRASOUND Ordering provider: Geraldine Carrillo APRN History: . - Other specified soft tissue disorders . Comparison: None. FINDINGS: --JUGULAR: Patent and free of thrombus. Normal compressibility, phasic flow and augmentation. --SUBCLAVIAN: Patent and free of thrombus. Normal compressibility, phasic flow and augmentation. --AXILLARY: Patent and free of thrombus. Normal compressibility, phasic flow an d augmentation. --BRACHIAL: Patent and free of thrombus. Normal compressibility, phasic flow a nd augmentation. --CEPHALIC: Thrombosed. --BASILIC: Patent and free of thrombus. Normal compressibility, phasic flow an d augmentation. --RADIAL: Patent and free of thrombus. Normal compressibility, phasic flow and augmentation. --ULNAR: Patent and free of thrombus. Normal compressibility, phasic flow and augmentation. IMPRESSION: THROMBOSED BOTH CEPHALIC VEINS. OTHER VEINS ARE UNREMARKABLE. IMPRESSION: Negative left upper extremity venous US. No deep vein thrombosis. RIGHT UPPER EXTREMITY VENOUS ULTRASOUND Ordering provider: Geraldine Carrillo APRN History: . - Other specified soft tissue disorders . Comparison: None. FINDINGS: --JUGULAR: Patent and free of thrombus. Normal compressibility, phasic flow and augmentation. --SUBCLAVIAN: Patent and free of thrombus. Normal compressibility, phasic flow and augmentation. --AXILLARY: Patent and free of thrombus. Normal compressibility, phasic flow an d augmentation. --BRACHIAL: Patent and free of thrombus. Normal compressibility, phasic flow a nd augmentation. --CEPHALIC: Thrombosed. --BASILIC: Patent and free of thrombus. Normal compressibility, phasic flow an d augmentation. --RADIAL: Patent and free of thrombus. Normal compressibility, phasic flow and augmentation. --ULNAR: Patent and free of thrombus. Normal compressibility, phasic flow and augmentation.
--- OUTSIDE RECORDS SUMMARY | 2024-08-02 15:53 | XMS_ITS | Continuity of Care Document ---
Author Organization [facility] Address [address] [place] [address] Phone Care Team Providers Care Industrial Manufacturing Technician Name Role Phone Jazmyn Vaughn Unavailable Unavailable Advance Directives Directive Yes / No Effective Date File Name No Information Encounters Encounter Description Practice Location Reason(s) For Visit Diagnoses Date Provider Providers Copied on Encounter [facility], [address], [place], [place], [id number], [place] tel:[phone] [facility] No Information Apr-2 0-200 4 Johana Eldridge. [address] , [address], [place], [address], [place]. tel:[phone] Family History Family Member Type Diagnosis Age At Onset No Information Payers Payer name Insurance type Covered green party ID Authoriza tion(s) No Information Social History [...]
--- OUTSIDE RECORDS SUMMARY | 2024-08-02 15:53 | XMS_ITS | Encounter Summary ---
Author Organization [facility] Address [address] [address] Care Team Providers Care Rn Telehealth Name Role Phone Maurice Mary MD Primary Care Provider [phone] Encounter Details Date Type Department Care Team (Late st Contact Info) Description 12/01/2022 Telephone [facility] - Centralized Scheduling [address] [place] [id number] Arlet Elaine, VENDOR QUALITY SUPERVISOR-LABOR RELATIONS MANAGER [address] [id number] Social History Tobacco Use Types Packs/Day Years [...] Sex Assigned at Male 03/19/2022 11:17 AM ADMINISTRATIVE STAFF SUPERVISOR Gender Identity Male 03/19/2022 11:17 AM ADMINISTRATIVE STAFF SUPERVISOR Sexual Orientation Straight 03/19/2022 11 :17 AM ADMINISTRATIVE STAFF SUPERVISOR documented as of this encounter Functional Status [...] on filedocumented in this encounter Care Teams Rn Telehealth Relationship Specialty Start Date End Date Maurice Mary MD [address] [place] [phone] PCP - General Family Medicine 03/31/23 documented as of this encounter
--- OUTSIDE RECORDS SUMMARY | 2024-08-02 15:53 | XMS_ITS | Encounter Summary ---
Author Organization [facility] [employer] [facility] Address [address] [place] [address] Care Team Providers Care Resident Medical Officer Name Role Phone Maurice Mary MD Primary Care Provider [phone] Encounter Details Date Type Department Care Team ([facility] Contact Info) Description 2024 Orders Only [facility] Oncology and Hematology [facility] [address] [place] [address] Petar Dong MD [facility] [employer] [address] [place] [phone] Iron deficiency anemia, unspecified iron deficiency anemia type Social History Tobacco Use Types Packs/Day Years Used Date Smoking Tobacco: Former Cigarettes Q uit: 1989 Smokeless Tobacco: Never Alcohol Use Standard Drinks/Week Comments Yes 0 (1 standard drink = 0.6 oz pur e alcohol) Sex and Gender Information Value Date Recorded Sex Assigned at Not on file Legal Sex Male 7:44 AM CDT Gender Identity Not on file Sexual Orientation Not on file documented as of this encounter Plan of Treatment Upcoming Encounters Date Type Department Care Team (Late Contact Info) Description 08/04/2024 2:00 PM CDT Office Visit [facility] Oncology and Hematology [facility] [address] [place] [address] Petar Dong MD [facility] [employer] [address] [place] [phone] documented as of this encounter Visit Diagnoses Diagnosis Iron deficiency anemia, unspecified iron deficiency anemia type documented in this encounter Care Teams Resident Medical Officer Relationship Specialty Start Date End Date Maurice Mary MD [address] [place] [id number] PCP - General Family Practice 02/27/23 documented as of this encounter
--- OUTSIDE RECORDS SUMMARY | 2024-08-02 15:53 | XMS_ITS | Clinical Summary ---
Author Organization [facility] Address [address] [place] [address] Care Team Providers Care Solar Project Coordination Specialist Name Role Phone Maurice Mary MD Primary Care Provider [phone] Source Comments [facility],non-owned Affiliates and Associated Physician Practices is amultiple site organization consisting of ambulatory clinics and hospital sitesin [place], [place], [place] and [place]. This disclosure is being madepursuant to the Care Everywhere program and may not contain all information available regarding this patient. Last updated 18.[facility] Allergies No known active allergies Medications * [...] (one) capsule by mouth once daily Active [place]-3 Fatty Acids (Fish Oil) 1200 MG Take [...] Active ipratropium (Atrovent) 0.06 % nasal spray [place] 2 (two) sprays into each nostril 3 [...] Department Care Team Description 05/04/2024 11:45 AM HYDRAULIC PRESS SERVICER Office Visit [facility] - Vascular Surgery [address] [facility] [place] [address] Hilda Asher MD Dissection of descending thoracic aorta (Primary Dx) 05/04/2024 10:37 AM HYDRAULIC PRESS SERVICER - 05/04/2024 11:59 PM HYDRAULIC PRESS SERVICER Hospital Encounter [facility] [address] [place] [address] Hilda Asher MD Discharge Disposition: Home or [...] Sex Assigned at Male 03/19/2022 11:17 AM HYDRAULIC PRESS SERVICER Gender Identity Male 03/19/2022 11:17 AM HYDRAULIC PRESS SERVICER Sexual Orientation Straight 03/19/2022 11 :17 AM HYDRAULIC PRESS SERVICER Last Filed Vital Signs Vital Sign Reading Time Taken Comments Blood Pressure 144/73 05/04/2024 11:34 AM HYDRAULIC PRESS SERVICER 149/74 Pulse 57 05/04/2024 11:34 AM HYDRAULIC PRESS SERVICER Temperature 36.6 C (97.9 F) 05/04/2024 11:34 AM HYDRAULIC PRESS SERVICER Respiratory Rate 18 05/04/2024 11:3 4 AM HYDRAULIC PRESS SERVICER Oxygen Saturation 98% 05/04/2024 11: 34 AM HYDRAULIC PRESS SERVICER Inhaled Oxygen Concentration 21% 03/02/2022 8 :58 PM HYDRAULIC PRESS SERVICER Weight 100.6 kg (221 lb 12.8 oz) 2024 11:34 AM HYDRAULIC PRESS SERVICER Height 180.3 cm (5' 11 ) 05/04/2024 11: 34 AM HYDRAULIC PRESS SERVICER Body Mass Index 30.93 05/04/2024 11:34 AM HYDRAULIC PRESS SERVICER Plan of Treatment Health Maintenance Due Date Last Done Comments MEDICARE AWV 12 MONTHS 1945 HEPATITIS C SCREENING 07/27/1965 PNEUMOCOCCAL VACCINE 50+ (1 of 1 - PCV) 07/31/1997 ZOSTER VACCINE (1 of 2) 07/31/1997 Respiratory Syncytial Virus (RSV) Vaccine Pt: or over 60 yrs (1 - 1-dose 75+ series) 07/31/2022 COVID-19 VACCINE ( - season) 2023 06/26/2021, 12/11/2020, 11/20/2020 DEPRESSION SCREENING 04/27/2024 INFLUENZA VACCINE (Season Ended) 2024 02/01/2022, 02/13/2014, 02/09/2013, Additional history exists DTAP/TDAP/TD VACCINES (2 - Td or Tdap) [...] this topic Medical Devices Implanted Type Area Care Giver Device Identifier Shelf Expiration Date Model / Serial / Lot Gft Stent 31mm 10cm Tag Thor Act Cntrl Implanted:Qty: 1 on 02/22/2022 by Hilda Asher MD at [facility] [employer] [id number] / / Fritz Bone Void 10ml Dbm Grftn Algrf Ptty - [id number] Implanted:Qty: 1 on 02/23/2022 by Jesus Myles MD at [facility] N/A: Spine Thoracic [employer] [id number] / [id number] / Graft Bone Canc 60ml Frzdr Chp 4-9.5mm - [id number] Implanted:Qty: 1 on 02/23/2022 by Jesus Myles MD at [facility] N/A: Spine Thoracic [employer] [id number] / [id number] / Graft Bone Canc 4-9.5mm 30cc Algrf Frzdr - [id number] Implanted:Qty: 1 on 02/23/2022 by Jesus Myles MD at [facility] N/A: Spine Thoracic [employer] [id number] / [id number] / Description:cancellous chips Fritz Bone Void 10ml Dbm Grftn Algrf Ptty - [id number] Implanted:Qty: 1 on 02/23/2022 by Jesus Myles MD at [facility] N/A: Spine Thoracic Med[employer] Inc 01/07/2025 [id number] / [id number] / Description:putty Screws Implanted:Qty: 7 on 02/23/2022 by Jesus Myles MD at [facility] 3 / / Description:screws Implanted:Qty: 4 on 02/23/2022 by Jesus Myles MD at [facility] / / Implanted:Qty: 11 on 02/23/2022 by Jesus Myles MD at [facility] / / Description:caps Roman Spnl 480mm 5.5mm Xpdm Ti Implanted:Qty: 1 on 02/23/2022 by Jesus Myles MD at [facility] Depuy Spine [id number] / / Screw 3.5mm 14mm Slf-Tap Cortx Evos Strl Implanted:Qty: 1 on 02/25/2022 by Rasta Jimenes MD at [facility] Left: Arm [employer] [id number] / / Screw 3.5mm 15mm Slf-Tap Cortx Evos Strl Implanted:Qty: 5 on 02/25/2022 by Rasta Jimenes MD at [facility] Left: Arm [employer] [id number] / / Screw 3.5mm 16mm Slf-Tap Cortx Evos Strl Implanted:Qty: 2 on 02/25/2022 by Rasta Jimenes MD at [facility] Left: Arm [employer] [id number] / / Scrw 3.5mm 18mm Slf-Tap Cortx Evos Strl Implanted:Qty: 1 on 02/25/2022 by Rasta Jimenes MD at [facility] Left: Arm [employer] [id number] / / Screw 3.5mm 19mm Slf-Tap Cortx Evos Strl Implanted:Qty: 1 on 02/25/2022 by Rasta Jimenes MD at [facility] Left: Arm [employer] [id number] / / 3.5mm Compression Plate Implanted:Qty: 1 on 02/25/2022 by Rasta Jimenes MD at [facility] Left: Arm [employer] [id number] / / Radial Shaft Plate Implanted:Qty: 1 on 02/25/2022 by Rasta Jimenes MD at [facility] Left: Arm [employer] [id number] / / Synthes/Depuy 3.5mm Crtx Screw/Low Prof Hd Self-Tappping/S trdrv/54mm-Ster Ref#[id number] Implanted:Qty: 1 on 02/26/[address] [facility] Left: Ankle 06/24/2026 [id number] / / [id number] Snythes/Depuy 2.7mm/3.5mm Lcp Lateral Distal Fibula Plate Ref#[id number] Implanted:Qty: 1 on 02/26/2022 by Jose Elias Baker DO at [facility] Left: Ankle .145S / / Screw 3.5mm 6mm 16mm 2.5mm Ft Slf-Tap Implanted:Qty: 2 on 02/26/2022 by Jose Elias Baker DO at [facility] Left: Ankle Synthes Usa 204.816 / / Screw 3.5mm 6mm 60mm Slf-Tap Sm Hex Sckt Implanted:Qty: 1 on 02/26/2022 by Jose Elias Baker DO at [facility] Left: Ankle Synthes Usa 204.860 / / Screw 2.7mm 2.1mm 14mm T8 Slf-Tap Lck Implanted:Qty: 1 on 02/26/2022 by Jose Elias Baker DO at [facility] Left: Ankle Synthes Usa 202.214 / / Screw 2.7mm 2.1mm 18mm T8 Slf-Tap Lck Implanted:Qty: 2 on 02/26/2022 by Jose Elias Baker DO at [facility] Left: Ankle Synthes Usa 202.218 / / Screw 2.7mm 2.1mm 20mm T8 Slf-Tap Lck Implanted:Qty: 1 on 02/26/2022 by Jose Elias Baker DO at [facility] Left: Ankle Synthes Usa 202.220 / / Screw 4mm 6mm 18mm Ft Canc Sm Hex Sckt Implanted:Qty: 1 on 02/26/[address] [facility] Left: Ankle Synthes Locai 206.018 / / Explanted Type Area Care Giver Device Identifier Shelf Expiration Date Model / Serial / Lot Screw 2.7mm 5mm 16mm T8 Slf-Tap Strdr Explanted:Qty: 1 on 02/26/2022 by Jose Elias Baker DO at [facility] Left: Ankle Synthes Locai 202.876 / / Procedures Procedure Name Priority Date/Time Associated Diagnosis Comments CT CHEST WO CONTRAST Routine 05/04/2024 10:52 AM HYDRAULIC PRESS SERVICER Dissection of descending thoracic aorta from Last 3 Months Results * CT CHEST WO CONTRAST (05/04/2024 10:52 AM HYDRAULIC PRESS SERVICER) Anatomical Region Laterality Modality Chest Computed Tomogra phy 05/04/2024 11:0 8 AM HYDRAULIC PRESS SERVICER Impressions 05/04/2024 11:14 AM HYDRAULIC PRESS SERVICER Impression: 1.Postprocedural changes related to repair of descending thoracic aorta with stent graft in the proximal descending thoracic aorta. No aneurysmal dilation of the thoracic aorta. 2.No acute process in the chest. > Interpreting Provider: Juan Carlos Frausto on 05/04/2024 11:14 AM Narrative 05/04/2024 11:14 AM HYDRAULIC PRESS SERVICER PROCEDURE: CT CHEST WO CONTRAST, DATE/TIME OF EXAM: 05/04/2024 10:53 AM, LOCATION [facility] INDICATION: I71.012: Dissection of descending thoracic aorta [...] DATE/TIME OF EXAM: 05/04/2024 10:53 AM, LOCATION [facility] INDICATION: I71.012: Dissection of descending thoracic aorta [...] 7:22 PM 03/05/2022 7:41 PM Care Teams Solar Project Coordination Specialist Relationship Specialty Start Date End Date Maruice Mary MD [address] [place] [phone] PCP - General Family Medicine 03/31/23
--- OUTSIDE RECORDS SUMMARY | 2024-08-02 15:53 | XMS_ITS | Clinical Summary ---
Author Organization [facility] Lavonne Suazo Address [address] [place] [address] Care Team Providers Care Supportive Employment Case Manager Name Role Phone Maurice Mary MD Primary Care Provider [phone] Allergies No known active allergies Medications ascorbic [...] Encounters Date Type Department Care Team Description 2024 Orders Only [facility] Oncology and Hematology - [place] [address] [place] [id number] Petar Dong MD Iron deficiency anemia, unspecified iron deficiency anemia type 07/19/2024 External Device Data STL ABSTRACTION Provider, Abstract 07/18/2024 Orders Only [facility] Oncology and Hematology - [place] [address] [place] [address] Petar Dong MD Iron deficiency anemia, unspecified iron deficiency anemia type 07/13/2024 External Device Data STL ABSTRACTION Provider, Abstract 07/13/2024 External Device Data STL ABSTRACTION Provider, Abstract 07/07/2024 Orders Only [facility] Oncology and Hematology - [place] [address] [place] [address] Petar Dong MD 07/04/2024 External Device Data STL ABSTRACTION Provider, Abstract 07/04/2024 Orders Only [facility] Oncology and Hematology - [place] [address] [place] [address] Petar Dong MD Iron deficiency anemia, unspecified iron deficiency anemia type 06/21/2024 2:30 PM BRAKE TESTER Office Visit [facility] Oncology and Hematology - [place] [address] [place] [address] Petar Dong MD Polycythemia vera ([facility]) (Primary Dx) 06/21/2024 External Device Data STL ABSTRACTION Provider, Abstract 06/20/2024 Orders Only [facility] Oncology and Hematology - [place] [address] [place] [phone] Petar Dong MD Iron deficiency anemia, unspecified iron deficiency anemia type 06/17/2024 Orders Only [facility] Oncology and Hematology - [place] [address] [place] [address] Petar Dong MD Polycythemia vera ([facility]) (Primary Dx) 06/06/2024 Orders Only [facility] Oncology and Hematology - [place] [address] [place] [id number] Petar Dong MD Iron deficiency anemia, unspecified iron deficiency anemia type 05/24/2024 External Device Data STL ABSTRACTION Provider, Abstract 05/23/2024 Orders Only [facility] Oncology and Hematology - [place] [address] [place] [address] Petar Dong MD Iron deficiency anemia, unspecified iron deficiency anemia type 05/18/2024 External Device Data STL ABSTRACTION Provider, Abstract 05/18/2024 External Device Data STL ABSTRACTION Provider, Abstract 05/11/2024 External Device Data STL ABSTRACTION Provider, Abstract 05/09/2024 Orders Only [facility] Oncology and Hematology - [address] [place] [address] Petar Dong MD Iron deficiency anemia, unspecified [...] Comments Blood Pressure 109/57 06/21/2024 2:05 PM BRAKE TESTER Pulse 58 06/21/2024 2:05 PM BRAKE TESTER Temperature 36.8 C (98.3 F) 06/21/2024 2:05 PM BRAKE TESTER Respiratory Rate 15 06/21/2024 2:05 PM BRAKE TESTER Oxygen Saturation 95% 06/21/2024 2:05 PM BRAKE TESTER Inhaled Oxygen Concentration - - Weight 97.8 kg (215 lb 9.6 oz) 06/21/2024 2:05 P M BRAKE TESTER Height - - Body Mass Index - - Plan of Treatment Upcoming Encounters Date Type Department Care Team (Late st Contact Info) Description 08/04/2024 2:00 PM CDT Office Visit [facility] Oncology and Hematology [facility] [address] [facility] [address] [place] [address] Petar Dong MD [address] [facility] [address] [place] [address] Health Maintenance Due Date Last Done Comments Traditional Medicare (ACO) Annual Wellness Visit 07/31 PNEUMOCOCCAL VACCINE 50+ YEARS (1 of 1 [...] WITH DIFFERENTIAL (07/06/2024 2:02 PM CDT) Blood us Petar Dong MD HEMATOLOGY ORDERABLES Final Res ult from Last 3 Months Insurance MEDICARE PART A AND B GENERIC PAYOR Care Teams Supportive Employment Case Manager Relationship Specialty Start Date End Date Maurice Mary MD [address] [place] [phone] PCP - General Family Practice 02/27/23
--- OUTSIDE RECORDS SUMMARY | 2024-08-02 15:53 | XMS_ITS | Clinical Summary ---
Author Organization [facility] Address [address] [place] [address] Care Team Providers Care Diamond Mounter Name Role Phone None, Provider MD Primary [...] Medicare Wellness Visit 07/31/2012 Pneumococcal Vaccine: 65+ Ye ars (1 of 1 - PCV) 07/31/2012 RSV Immunization or 60+ Years (1 - 1-dose 75+ series) 07/31/2022 COVID-19 Vaccine ( - 2023-2 5 season) 2023 DTaP, Tdap and Td Vaccines ( 2 - Td or Tdap) 02/21/2032 02/20/2022 Meningococcal B Vaccine Aged Out No l onger eligible based on patient's age to complete this topic Meningococcal Vaccine Aged Out No trish nikki eligible based on patient's age to complete this topic RSV Immunizations Under 20 Months Aged Out No longer eligible based on patient's age to complete this topic Insurance MEDICARE Care Teams Diamond Mounter Relationship Specialty Start Date End Date None, Provider, PCP - General 01/27/19
== END 2024-08-02 14:15 | disposition home or self-care (01) ==
LOC: ANHIMG 14:16
PROVIDERS: PCP Family Medicine; Visit Provider Nurse Practitioner Family
DX: M79.89 Other specified soft tissue disorders (principal); I82.613 Acute embolism and thrombosis of superficial veins of upper extremity, bilateral; D75.1 Secondary polycythemia; Z09 Encounter for follow-up examination after completed treatment for conditions other than malignant neoplasm
CPT/HCPCS: 76882; 93970